=== PATIENT | female | born 1950 | race Caucasian/White ===

== ENCOUNTER 2016-09-12 18:06 | Emergency (ER) | payer MEDICARE, BC ==
[2016-09-12 18:21] VITALS: BP 131/73
[2016-09-12] MEDS ORDERED: Aspirin Low Dose CHEW TAB* 81 MG PO ONE (19:30)
--- NOTE | 2016-09-12 20:05 | RAD ---
INDICATION: Chest pain. COMPARISON: Comparison is made with a prior chest x-ray study from November 19, 2009. TECHNIQUE: Dual-energy PA and lateral views of the chest were obtained. FINDINGS: The heart is within normal limits in size. Mediastinal and hilar contours appear within normal limits. The lungs are underinflated. There is a linear density present at the right lung base most consistent with atelectasis. The lungs are otherwise clear. No pleural effusion is seen. IMPRESSION: NO EVIDENCE FOR ACUTE FINDING.
[2016-09-12 20:42] LABS: Albumin 3.2 g/dL (3.2-5.2); BUN/Creatinine Ratio 44.8 (8-20); Calcium 9.1 mg/dL (8.6-10.3); EGFR African American 83.8 (>60); EGFR Non-African American 65.1 (>60); Hematocrit 36 % (35-47); Hemoglobin 11.5 g/dl (12.0-16.0); Magnesium 1.9 mg/dL (1.9-2.7); Mean Corpuscular HGB Conc 32 g/dl (31-36); Mean Corpuscular Hemoglobin 24 pg (27-31); Mean Corpuscular Volume 76 fL (80-97); Mean Platelet Volume 9 um3 (7.4-10.4); Potassium 4.4 mmol/L (3.5-5.0); Red Blood Count 4.77 10^6/ul (4.0-5.4); Red Cell Distribution Width 19 % (10.5-15); Total Bilirubin 0.5 mg/dL (0.2-1.0); Total Protein 8.2 g/dL (6.4-8.9); White Blood Count 9.2 10^3/ul (3.5-10.8)
[2016-09-12 20:44] LABS: Troponin I 0.01 ng/mL (<0.04)
[2016-09-12] MEDS ORDERED: Iodixanol* (CONTRAST) 320 MG/ML 100 ML SDV IV ONE (21:03)
--- NOTE | 2016-09-12 21:45 | ED ---
Raquel Quiroga Rebecca, scribed for Marcio Peralta MD on 09/12/16 at 1925 . HPI Chest Pain - HPI Summary HPI Summary: Pt is a 66 y/o F who presents to ED c/o CP. Pain began suddenly at approximately 1700 while sitting and has been constant since onset. Pain is discrete to the midsternal region without radiation. Pain is currently modeate, ranked 4/10 and characterized as tightness. 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 Additionally c/o SOB for which she was evaluated by her PCP 4 days ago and she reports he found her "coagulation stuff was all out of wack" and prescribed Xarelto. Additionally c/o anxiety and back pain which may be secondary to an old injury that is flaring up. Is currently on blood thinners. PMHx PE. - History of Current Complaint Chief Complaint: EDChestWallPain Hx Obtained From: Patient Onset/Duration: Started Hours Ago, Still Present Time of Onset: 17:00 Timing: Constant Initial Severity: Moderate Current Severity: Moderate Pain Intensity: 4 Pain Scale Used: 0-10 Numeric Chest Pain Location: Mid Sternal Chest Pain Radiates: No Character: Tightness Aggravating Factor(s): Nothing Alleviating Factor(s): Nothing Associated Signs and Symptoms: Positive: Anxiety, Shortness of Breath, Back Pain Related History: Obesity - Allergy/Home Medications Allergies/Adverse Reactions: Allergies Allergy/AdvReac Type Severity Reaction Status Date / Time Erythromycin AdvReac Mild GI Upset Verified 01/01/14 14:28 PMH/Surg Hx/FS Hx/Imm Hx Endocrine/Hematology History: Reports: Hx Anticoagulant Therapy - Xarelto, Hx Diabetes - diet controlled Denies: Hx Thyroid Disease Cardiovascular History: Reports: Hx Hypertension Respiratory History: Reports: Hx Pulmonary Embolism Denies: Hx Asthma, Hx Chronic Obstructive Pulmonary Disease (COPD) GI History: Denies: Hx Ulcer - Surgical History Surgery Procedure, Year, and Place: Hysterectomy. Gall Bladder. Perforation in intestine, Repaired. Colostomy, then reversal Infectious Disease History: No Infectious Disease History: Denies: Hx Hepatitis, Hx Human Immunodeficiency Virus (HIV), Traveled Outside the [place] in Last 30 Days - Family History Known Family History: Positive: Cardiac Disease, Hypertension, Diabetes - Social History Alcohol Use: None Substance Use Type: Reports: None Review of Systems Positive: Chest Pain - midsternal Positive: Shortness Of Breath Positive: Arthralgia - Back pain which may be secondary to prior injury Positive: Anxious All Other Systems Reviewed And Are Negative: Yes Physical Exam Triage Information Reviewed: Yes Vital Signs On Initial Exam: Initial Vitals Temp Pulse Resp BP Pulse Ox 97.9 F 85 18 131/73 98 09/12/16 18:17 09/12/16 18:17 09/12/16 18:17 09/12/16 18:17 09/12/16 18:17 Vital Signs Reviewed: Yes Appearance: Positive: Pain Distress - mild discomfort, Obese - morbidly Skin: Positive: Warm Eyes: Positive: MAGGI ENT: Positive: Hearing grossly normal Neck: Positive: Supple Respiratory/Lung Sounds: Positive: Breath Sounds Present, Decreased Breath Sounds Cardiovascular: Positive: RRR Abdomen Description: Positive: Nontender, Soft Bowel Sounds: Positive: Present Musculoskeletal: Positive: Strength/ROM Intact Psychiatric: Positive: Affect/Mood Appropriate Diagnostics - Vital Signs Vital Signs Temp Pulse Resp BP Pulse Ox 09/12/16 18:17 97.9 F 85 18 131/73 98 - Laboratory Lab Results: Lab Results 09/12/16 09/12/16 09/12/16 Range/Units 20:10 20:10 20:10 WBC 9.2 (3.5-10.8) 10^3/ul RBC 4.77 (4.0-5.4) 10^6/ul Hgb 11.5 L (12.0-16.0) g/dl Hct 36 (35-47) % MCV 76 L (80-97) fL MCH 24 L (27-31) pg MCHC 32 (31-36) g/dl RDW 19 H (10.5-15) % Plt Count 370 (150-450) 10^3/ul MPV 9 (7.4-10.4) um3 Neut % (Auto) 69.0 (38-83) % Lymph % (Auto) 25.6 (25-47) % [place] % (Auto) 5.0 (1-9) % Eos % (Auto) 0 (0-6) % Baso % (Auto) 0.4 (0-2) % Absolute Neuts (auto) 6.4 (1.5-7.7) 10^3/ul Absolute Lymphs (auto) 2.4 (1.0-4.8) 10^3/ul Absolute Monos (auto) 0.5 (0-0.8) 10^3/ul Absolute Eos (auto) 0 (0-0.6) 10^3/ul Absolute Basos (auto) 0 (0-0.2) 10^3/ul Absolute Nucleated RBC 0.01 10^3/ul Nucleated RBC % 0.1 INR (Anticoag Therapy) (0.89-1.11) D-Dimer, Quantitative (Less Than 230) ng/mL Sodium 132 L (133-145) mmol/L Potassium 4.4 (3.5-5.0) mmol/L Chloride 98 L (101-111) mmol/L Carbon Dioxide 23 (22-32) mmol/L Anion Gap 11 (2-11) mmol/L BUN 39 H (6-24) mg/dL Creatinine 0.87 (0.51-0.95) mg/dL Est GFR ( Amer) 83.8 (>60) Est GFR (Non-Af Amer) 65.1 (>60) BUN/Creatinine Ratio 44.8 H (8-20) Glucose 205 H (70-100) mg/dL Lactic Acid 1.1 (0.5-2.0) mmol/L Calcium 9.1 (8.6-10.3) mg/dL Magnesium 1.9 (1.9-2.7) mg/dL Total Bilirubin 0.50 (0.2-1.0) mg/dL AST 49 H (13-39) U/L ALT 71 H (7-52) U/L Alkaline Phosphatase 443 H (34-104) U/L Troponin I 0.01 (<0.04) ng/mL Total Protein 8.2 (6.4-8.9) g/dL Albumin 3.2 (3.2-5.2) g/dL Globulin 5.0 H (2-4) g/dL Albumin/Globulin Ratio 0.6 L (1-3) 09/12/16 Range/Units 20:10 WBC (3.5-10.8) 10^3/ul RBC (4.0-5.4) 10^6/ul Hgb (12.0-16.0) g/dl Hct (35-47) % MCV (80-97) fL MCH (27-31) pg MCHC (31-36) g/dl RDW (10.5-15) % Plt Count (150-450) 10^3/ul MPV (7.4-10.4) um3 Neut % (Auto) (38-83) % Lymph % (Auto) (25-47) % [place] % (Auto) (1-9) % Eos % (Auto) (0-6) % Baso % (Auto) (0-2) % Absolute Neuts (auto) (1.5-7.7) 10^3/ul Absolute Lymphs (auto) (1.0-4.8) 10^3/ul Absolute Monos (auto) (0-0.8) 10^3/ul Absolute Eos (auto) (0-0.6) 10^3/ul Absolute Basos (auto) (0-0.2) 10^3/ul Absolute Nucleated RBC 10^3/ul Nucleated RBC % INR (Anticoag Therapy) 2.11 H (0.89-1.11) D-Dimer, Quantitative 478 H (Less Than 230) ng/mL Sodium (133-145) mmol/L Potassium (3.5-5.0) mmol/L Chloride (101-111) mmol/L Carbon Dioxide (22-32) mmol/L Anion Gap (2-11) mmol/L BUN (6-24) mg/dL Creatinine (0.51-0.95) mg/dL Est GFR ( Amer) (>60) Est GFR (Non-Af Amer) (>60) BUN/Creatinine Ratio (8-20) Glucose (70-100) mg/dL Lactic Acid (0.5-2.0) mmol/L Calcium (8.6-10.3) mg/dL Magnesium (1.9-2.7) mg/dL Total Bilirubin (0.2-1.0) mg/dL AST (13-39) U/L ALT (7-52) U/L Alkaline Phosphatase (34-104) U/L Troponin I (<0.04) ng/mL Total Protein (6.4-8.9) g/dL Albumin (3.2-5.2) g/dL Globulin (2-4) g/dL Albumin/Globulin Ratio (1-3) Result Diagrams: 09/12/16 20:10 09/12/16 20:10 Lab Statement: Any lab studies that have been ordered have been reviewed, and results considered in the medical decision making process. - Radiology CXR Xray Interpretation: No Acute Changes - NO EVIDENCE FOR ACUTE FINDING. Radiology Interpretation Completed By: Radiologist - CT Chest/Thorax CTA CT Interpretation Completed By: Radiologist - 1. SLIGHTLY LIMITED EXAM, NO EVIDENCE FOR PULMONARY EMBOLISM. 2. THERE IS INCREASED SOFT TISSUE DENSITY IN THE PERIPORTAL AND PERIPANCREATIC REGION ADJACENT TO THE PANCREATIC HEAD SUSPICIOUS FOR ADENOPATHY. RECOMMEND A CT OF THE ABDOMEN AND PELVIS WITH IV AND ORAL CONTRAST FOR FURTHER EVALUATION. 3. MILDLY PROMINENT RIGHT AXILLARY LYMPH NODES. 4. HEPATOMEGALY. 5. PROMINENT RETROPERITONEAL VEINS SUGGESTING THE POSSIBILITY OF INFERIOR VENA CAVA OBSTRUCTION OR COMPRESSION. - EKG 1806 Cardiac Rate: NL - 97 bpm EKG Rhythm: Sinus Rhythm - nl EKG Interpretation: No acute ischemia Re-Evaluation - Re-Evaluation First Eval Re-Evaluation Time: 22:50 Change: Improved Comment: Pt is feeling better. Discussed and explained d/c with pt. Chest Pain Course/Dx - Course Assessment/Plan: Pt is a 66 y/o F who presents to ED with a CC of CP for 2 and a half hours. Additionally c/o anxiety, SOB and back pain (may be secondary to prior injury). EKG reveals no acute ischemia. CXR reveals no acute findings. Chest/Thorax CTA shows no evidence for PE. Pt will be d/c to home with a dx of chest pain with a followup with her PCP. - Diagnoses Provider Diagnoses: Chest pain Discharge - Discharge Plan Condition: Stable Disposition: HOME Patient Education Materials: Chest Pain (ED) Referrals: Hussein Centeno MD [Primary Care Provider] - 4 Days (Follow up with your primary care physician within the next 4 days. ) The documentation as recorded by the Raquel fernandez Rebecca accurately reflects the service I personally performed and the decisions made by me, Marcio Peralta MD.
--- NOTE | 2016-09-12 22:04 | RAD ---
INDICATION: Chest pain, shortness of breath and elevated d-dimer. COMPARISON: Comparison is made with prior chest x-ray study obtained earlier today and a prior CT of the chest from September 09, 2016. Correlation is also made with a prior CT of the abdomen from April 07, 2004. TECHNIQUE: A CT angiogram of the chest was performed with intravenous following intravenous injection of 96 ml of Visipaque 320 nonionic contrast. Contiguous axial sections were obtained from the lung apices through the lung bases. Images were reconstructed in the coronal and sagittal planes. FINDINGS: There is slightly suboptimal opacification of the pulmonary arteries and mild motion artifact limiting the exam slightly. No intraluminal filling defect or pulmonary embolism is seen. The heart is mildly enlarged. No pericardial effusion is present. The thoracic aorta is normal in caliber and demonstrates homogeneous contrast opacification. No significant enlarged mediastinal or hilar lymph nodes are seen. There is mild right middle lobe subsegmental atelectasis or scarring. The lungs are otherwise clear. No pleural effusion is present. The liver appears enlarged. There is increased soft tissue density in the periportal and peripancreatic head region possibly representing adenopathy. Recommend a CT of the abdomen and pelvis with IV and oral contrast for further evaluation. There is prominence of the azygos and hemiazygos veins. The visualized portion of the inferior vena cava in the upper abdomen appears small in size and may be compressed or occluded. There are a couple prominent right axillary lymph nodes measuring 1.3 cm in transverse dimension. No significant focal osseous abnormality is seen. IMPRESSION: 1. SLIGHTLY LIMITED EXAM, NO EVIDENCE FOR PULMONARY EMBOLISM. 2. THERE IS INCREASED SOFT TISSUE DENSITY IN THE PERIPORTAL AND PERIPANCREATIC REGION ADJACENT TO THE PANCREATIC HEAD SUSPICIOUS FOR ADENOPATHY. RECOMMEND A CT OF THE ABDOMEN AND PELVIS WITH IV AND ORAL CONTRAST FOR FURTHER EVALUATION. 3. MILDLY PROMINENT RIGHT AXILLARY LYMPH NODES. 4. HEPATOMEGALY. 5. PROMINENT RETROPERITONEAL VEINS SUGGESTING THE POSSIBILITY OF INFERIOR VENA CAVA OBSTRUCTION OR COMPRESSION.
== END 2016-09-12 22:56 | disposition home or self-care (01) ==
LOC: ED 18:06
DX: R07.9 Chest pain, unspecified (principal); I10 Essential (primary) hypertension; Z86.711 Personal history of pulmonary embolism; Z79.01 Long term (current) use of anticoagulants; Z79.82 Long term (current) use of aspirin
CPT/HCPCS: 36415; 71020; 71275; 80053; 83605; 83735; 84484; 85025; 85379; 85610; 93005; 99282; A9270-GY; Q9967

== ENCOUNTER 2016-09-13 05:29 | Inpatient (IN) | payer MEDICARE, BC ==
[2016-09-13] MEDS ORDERED: Melatonin (NF) 3 MG TAB PO PRN (05:54)
[2016-09-13] MEDS ORDERED: Acetaminophen TAB* 325 MG PO PRN (05:54)
[2016-09-13] MEDS ORDERED: Ondansetron INJ* 2 MG/ML VIAL IV PRN (05:56)
--- NOTE | 2016-09-13 06:01 | HP ---
H&P (Free Text) History and Physical: PCP: Eun Centeno MD Date/Time of Evaluation: 09/13/2016 0545 CC: SOB HPI: Mrs Coello is a 66YO super morbidly obese female who presented to [facility] 09/12/2016 for SOB with chest discomfort and was discharged after a negative work up including CTA chest. She went to bed after arriving home only to awake to use the restroom finding herself very SOB again. She states this isn't unusual, but that she usually recovers quickly and this AM she didn't prompting a call to EMS. Upon their arrival she had an saO2 in the 80s which improved along with her SOB with [place] oxygen. As such she will be admitted for further work up and consideration of pulmonology consult. Of note she was diagnosed recently with Lyme's disease and is taking doxycycline. Also, she reports recently seeing her PCP who found that her "coagulation tests" were "all messed up" and so started her on rivaroxaban. We will request office records for further information. I did explain to her that there is no PE, pneumonia, signs of bronchitis, or signs of heart failure making the etiology for her SOB unclear, but making me concerned that this is obesity hypoventilation syndrome and that without a significant amount of weight loss, she is heading for a tracheostomy or Hospice situation. PMedHx super morbid obesity DM2 HTN HX DVT w/ PE x2 diverticulitis s/p colostomy & reversal restless leg syndrome OA Allergies Erythromycin Adverse Reaction (Mild, Verified 01/01/14 14:28) GI Upset Ambulatory Orders DULoxetine CAP* [Cymbalta CAP*] 60 mg PO DAILY 04/07/13 Triamterene/HCTZ 37.5-25 MG* [Dyazide*] 1 cap PO BID 04/07/13 Diltiazem TAB* [Cardizem TAB*] 240 mg PO BID 01/01/14 rOPINIRole TAB* [Requip*] 4 mg PO DAILY 01/01/14 DOXYcycline CAP(*) [DOXYcycline 100MG CAP(*)] 100 mg PO DAILY 09/13/16 HYDROcodone/ACETAMIN 5-325 MG* [[place] 5-325 TAB*] 1 tab PO Q4H PRN 09/13/16 Rivaroxaban TAB(*) [Xarelto 10 mg (*)] 10 mg PO DAILY 09/13/16 PSurgHx colostomy & reversal cholecystectomy SocHx: no tobacco, alcohol, or recreational drugs; full code status, needs revisiting FamHx: Mother passed of PE. Father passed of CAD. ROS: as above, otherwise reviewed and all were negative Constitutional: NAD, normally developed, super morbidly obese white female vitals: Vital Signs Temp 35.3 C 09/13/16 06:10 Pulse 112 09/13/16 06:10 Resp 27 09/13/16 06:10 BP 120/68 09/13/16 06:10 Pulse Ox 99 09/13/16 06:10 Intake & Output 09/12/16 09/12/16 09/13/16 11:59 23:59 11:59 Weight 290 lb HEENM: atraumatic; sclera/conjunctiva: non-icteric/clear; hearing: clinically intact; oropharynx: clear, mucosa moist Neck: soft tissue: no nuchal rigidity; thyroid: normal Pulmonary: distant lung sounds B, clear to auscultation bilaterally, good to fair aeration, no accessory muscle use CV: RR/RR, normal S1S2, no carotid bruit, no femoral bruit, no abdominal bruit, no jugular venous distention, 2+ B DP/PT, no edema Abdominal: soft, non-distended, non-tender, no rebound/guarding/rigidity, normoactive bowel sounds, no hepatosplenomegaly or masses, no costovertebral angle tenderness Musculoskeletal: general: grossly intact Integumental: normal appearance and texture Psychiatric orientation: AA&O to PPS affect: calm mood: cooperative eye contact: poor, gives majority of history with eyes closed content: reliable responses: timely insight: fair Testing: reviewed from previous ED visit ECG, personally reviewed: NSR rate 99, no ischemia CXR, personally reviewed: IMPRESSION: NO EVIDENCE FOR ACUTE FINDING. CTA chest, personally reviewed: IMPRESSION: 1. SLIGHTLY LIMITED EXAM, NO EVIDENCE FOR PULMONARY EMBOLISM. 2. THERE IS INCREASED SOFT TISSUE DENSITY IN THE PERIPORTAL AND DEBBIE- PANCREATIC REGION ADJACENT TO THE PANCREATIC HEAD SUSPICIOUS FOR ADENOPATHY. RECOMMEND A CT OF THE ABDOMEN AND PELVIS WITH IV AND ORAL CONTRAST FOR FURTHER EVALUATION. 3. MILDLY PROMINENT RIGHT AXILLARY LYMPH NODES. 4. HEPATOMEGALY. 5. PROMINENT RETROPERITONEAL VEINS SUGGESTING THE POSSIBILITY OF INFERIOR VENA CAVA OBSTRUCTION OR COMPRESSION. Impression: 66F presenting with SOB of uncertain etiology, concerning for decompensating obesity-hypoventilation syndrome DIAGNOSIS & PLAN Primary SOB, unclear etiology, suspect obesity hypoventilation syndrome : supplemental oxygen : NPO for now : consider pulmonology consult in AM : recheck labs in AM : check ECHO : supportive care Secondary super morbid obesity : likely a contributing factor to her SOB DM2 : basal/correctional protocol : check A1c HTN : continue diltiazem : hold triamterene HCTZ HX DVT w/ PE x2 : continue rivaroxaban restless leg syndrome : continue ropinirole Admission Rational: inpatient for SOB of unclear etiology in patient found at home with saO2 in the 80s making outpatient management inappropriate DVTp: continue rivaroxaban Code Status: full, needs revisiting HCP: daughter, Ami Lin
--- NOTE | 2016-09-13 06:04 | ED ---
Raquel Quiroga Rebecca, scribed for Marcio Peralta MD on 09/13/16 at 0540 . Shortness of Breath - HPI Summary HPI Summary: Pt is a 66 y/o F BIBA who presents to ED c/o SOB. SOB began suddenly this morning at 0500 after walking to the bathroom and has been constant since onset. SOB characterized as dyspnea at rest. Per EMS, on arrival her O2 sat was 80. Sx aggravated and alleviated by nothing. Pt was evaluated by [facility] for similar symptoms yesterday. A CTA Chest and CXR were performed, revealing no acute pathologies. - History of Current Complaint Hx Obtained From: EMS Onset/Duration: Sudden Onset, Still Present Timing: Constant Current Severity: Moderate Dyspnea At: Rest Aggrevating Factors: Nothing Alleviating Factors: Nothing Associated Signs & Symptoms: Negative Related History: Obesity, Similar Episode - Yesterday - Allergy/Home Medications Allergies/Adverse Reactions: Allergies Allergy/AdvReac Type Severity Reaction Status Date / Time Erythromycin AdvReac Mild GI Upset Verified 01/01/14 14:28 Home Medications: Home Medications DOXYcycline CAP(*) [DOXYcycline 100MG CAP(*)] 100 mg PO DAILY 09/13/16 [History Confirmed 09/13/16] HYDROcodone/ACETAMIN 5-325 MG* [[place] 5-325 TAB*] 1 tab PO Q4H PRN 09/13/16 [ History Confirmed 09/13/16] Rivaroxaban TAB(*) [Xarelto 10 mg (*)] 10 mg PO DAILY 09/13/16 [History Confirmed 09/13/16] PMH/Surg Hx/FS Hx/Imm Hx Endocrine/Hematology History: Reports: Hx Anticoagulant Therapy - Xarelto, Hx Diabetes - diet controlled Denies: Hx Thyroid Disease Cardiovascular History: Reports: Hx Hypertension Respiratory History: Reports: Hx Pulmonary Embolism Denies: Hx Asthma, Hx Chronic Obstructive Pulmonary Disease (COPD) GI History: Denies: Hx Ulcer - Surgical History Surgery Procedure, Year, and Place: Hysterectomy. Gall Bladder. Perforation in intestine, Repaired. Colostomy, then reversal Infectious Disease History: Denies: Hx Hepatitis, Hx Human Immunodeficiency Virus (HIV) - Family History Known Family History: Positive: Cardiac Disease, Hypertension, Diabetes - Social History Alcohol Use: None Substance Use Type: Reports: None Smoking Status (MU): Never Smoked Tobacco Review of Systems Constitutional: Negative Eyes: Negative ENT: Negative Cardiovascular: Negative Positive: Shortness Of Breath - dyspnea at rest Gastrointestinal: Negative Genitourinary: Negative Musculoskeletal: Negative Skin: Negative Neurological: Negative Psychological: Normal All Other Systems Reviewed And Are Negative: Yes Physical Exam Triage Information Reviewed: Yes Vital Signs On Initial Exam: Initial Vitals Temp Pulse Resp BP Pulse Ox 95.9 F 108 26 138/83 100 09/13/16 05:35 09/13/16 05:35 09/13/16 05:35 09/13/16 05:35 09/13/16 05:35 Vital Signs Reviewed: Yes Appearance: Positive: No Pain Distress, Obese - morbidly Skin: Positive: Warm Eyes: Positive: MAGGI ENT: Positive: Hearing grossly normal Neck: Positive: Supple Respiratory/Lung Sounds: Positive: Decreased Breath Sounds, Wheezes Cardiovascular: Positive: RRR Abdomen Description: Positive: Nontender, Soft Neurological: Positive: Sensory/Motor Intact Psychiatric: Positive: Anxious Diagnostics - Vital Signs Vital Signs Temp Pulse Resp BP Pulse Ox 09/13/16 05:35 95.9 F 108 26 138/83 100 - Laboratory Lab Statement: Any lab studies that have been ordered have been reviewed, and results considered in the medical decision making process. Course/Dx - Course Assessment/Plan: Pt is a 66 y/o F BIBA who presents to ED with a CC of SOB for the last hour. SOB characterized as dyspnea at rest. She was evaluated by [facility] for similar symptoms yesterday, with a CXR and CTA Chest/Thorax performed, both of which revealed no acute pathologies. Discussed care of pt with Dr. Mora, who will admit pt. Pt will be admitted to hospitalist services. - Diagnoses Provider Diagnoses: Dyspnea - Physician Notifications Discussed Care of Patient With: Dr. Mora, hospitalist, who agrees to admit pt. Time Discussed With Above Provider: 05:42 Instructed by Provider To: Admit As Inpatient Discharge - Discharge Plan Condition: Good Disposition: ADMITTED TO [facility] Referrals: Hussein Centeno MD [Primary Care Provider] - The documentation as recorded by the Raquel fernandez Rebecca accurately reflects the service I personally performed and the decisions made by me, Marcio Peralta MD.
[2016-09-13] MEDS: DULoxetine DR CAP* 30 MG CAP.DR PO SCH ×2 (07:58→08:20)
[2016-09-13] MEDS: DOXYcycline CAP(*) 100 MG PO SCH ×2 (07:58→11:02)
[2016-09-13] MEDS: Aspirin TAB* 325 MG PO SCH ×2 (07:58→08:20)
[2016-09-13] MEDS: Omeprazole CAP* 20 MG PO SCH ×2 (07:58→08:20)
[2016-09-13] MEDS: Diltiazem CD CAP* 240 MG PO SCH ×3 (07:59→21:28)
[2016-09-13] MEDS: Docusate CAP* 100 MG PO SCH ×3 (07:59→21:28)
[2016-09-13] MEDS: Insulin LISPRO* 1 UNITS UNIT SUBCUT SCH ×5 (08:55→23:38)
[2016-09-13] MEDS ORDERED: Rivaroxaban TAB(*) 10 MG PO SCH ×2 (09:00)
[2016-09-13 09:08] LABS: BUN/Creatinine Ratio 31.9 (8-20); EGFR African American 40.6 (>60); EGFR Non-African American 31.6 (>60); HDL Cholesterol 29.8 mg/dL; Potassium 5.2 mmol/L (3.5-5.0)
[2016-09-13 09:11] LABS: Troponin I 0.03 ng/mL (<0.04)
[2016-09-13] MEDS: rOPINIRole TAB* 4 MG PO SCH ×2 (11:02→11:03)
[2016-09-13] MEDS: NS 0.9% 1000 ML* 1,000 ML IV SCH (11:03)
[2016-09-13 15:38] LABS: Hematocrit 34 % (35-47); Hemoglobin 10.8 g/dl (12.0-16.0); Mean Corpuscular HGB Conc 31 g/dl (31-36); Mean Corpuscular Hemoglobin 24 pg (27-31); Mean Corpuscular Volume 77 fL (80-97); Mean Platelet Volume 9 um3 (7.4-10.4); Red Blood Count 4.45 10^6/ul (4.0-5.4); Red Cell Distribution Width 19 % (10.5-15); White Blood Count 15.7 10^3/ul (3.5-10.8)
--- NOTE | 2016-09-13 16:09 | ECHO ---
Patient: ROMAIN LOU [facility] Rec#: [id number] : 1950 Date: 09/13/2016 Age: 66y Height: 162.56 cm / 64.0 in Weight: 130.63 kg / 287.9 lbs Sex: F BSA: 2.28 Room#: 443 Admit Date#: 09/13/2016 Type: Inpatient Referring: Justin Mora MD Reading: Bjorn Pena MD Friction Saw Operator: Ruth Mensah RDCS CC: Hussien Centeno MD Transthoracic Echocardiogram Indication: SOB BP: 120/68 HR: 122 Rhythm: Tachycardia Findings History: Morbid obesity,DM,HTN,prior PE, obstructive apnea,Lyme's disease. Technical Comments: The study is technically limited due to poor apical windows. The study is technically limited due to patient body habitus. The study was technically limited due to the patient's inability to lay in the left lateral decubitus position. Left Ventricle: The left ventricle is not well visualized. Unable to estimate left ventricular ejection fraction. The patient was unable to perform a Valsalva maneuver. Left Atrium: The left atrium is normal in size. Right Ventricle: The right ventricle is not well visualized. The right ventricular global systolic function is normal. Right Atrium: The right atrium is not well visualized. Aortic Valve: The aortic valve is trileaflet. There is no evidence of aortic regurgitation. There is no evidence of aortic stenosis. Mitral Valve: The mitral valve leaflets are mildly thickened. There is no evidence of mitral regurgitation. There is no evidence of mitral stenosis. Tricuspid Valve: The tricuspid valve structure is not well visualized. Pulmonic Valve: The pulmonic valve appears normal. There is a trace pulmonic regurgitation. There is no pulmonic stenosis. Pericardium: A pericardial fat pad is visualized. Aorta: There is no dilatation of the ascending aorta. There is no dilatation of the aortic arch. There is no dilation of the aortic root. Pulmonary Artery: The main pulmonary artery appears normal. Venous: The venous system is not well visualized. Conclusions The study is technically limited due to poor apical windows. The study is technically limited due to patient body habitus. The study was technically limited due to the patient's inability to lay in the left lateral decubitus position. Off axis views and tachycardia with lung tissue interference precludes accurate LV function analysis. No significant mitral or aortic valvular disease. If accurate assessment of LV systolic function is needed, consider alternative imaging. Measurements Name Value Normal Range RVIDd (AP) 2D 2.1 cm (0.9 - 2.6) IVSd (2D) 1 cm (0.6 - 1) LVPWd (2D) 0.8 cm (0.6 - 1) LVIDd (2D) 2.8 cm (3.6 - 5.4) LVIDs (2D) 1.8 cm - LV FS (2D) 36 % (25 - 45) Aortic Annulus 1.7 cm (1.4 - 2.6) Ao root diameter (2D) 2.8 cm (2.1 - 3.5) Ascending Ao 2.9 cm (2.1 - 3.4) Aortic arch 1.8 cm (1.8 - 3.4) Descending Ao 0.7 cm - LA dimension (AP) 2D 2.7 cm (2.3 - 3.8) Name Value Normal Range MV E-wave Vmax 0.6 m/sec - MV deceleration time 122 msec - MV A-wave Vmax 0.5 m/sec - MV E:A ratio 1.2 ratio - LV septal e' Vmax 0.11 m/sec - LV lateral e' Vmax 0.11 m/sec - LV E:e' septal ratio 5.45 ratio - LV E:e' lateral ratio 5.45 ratio - Name Value Normal Range AV Vmax 1 m/sec - AV VTI 13.3 cm - AV peak gradient 4.27 mmHg - AV mean gradient 1.98 mmHg - LVOT Vmax 0.73 m/sec - LVOT VTI 9.38 cm - LVOT peak gradient 2.15 mmHg - LVOT mean gradient 1.02 mmHg - Name Value Normal Range PV Vmax 0.9 m/sec - PV peak gradient 3.17 mmHg -
[2016-09-13] MEDS ORDERED: Iodixanol* (CONTRAST) 320 MG/ML 100 ML SDV IV ONE (18:44)
--- NOTE | 2016-09-13 20:43 | PN ---
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 She continues to feel the same level of SOB. Plan is for pulmonary consultation tomorrow. ? viral illness as source of increased SOB-she tells me that she ordinarily is not SOB. Additionally will get CT abd/pelvis to eval peripancreatic adenopathy.
[2016-09-13] MEDS ORDERED: Insulin GLARGINE(*) 1 UNITS UNIT SUBCUT SCH (21:00)
[2016-09-14] MEDS: Insulin LISPRO* 1 UNITS UNIT SUBCUT SCH ×5 (03:41→20:51)
[2016-09-14] MEDS: Omeprazole CAP* 20 MG PO SCH (05:08)
[2016-09-14] MEDS: Docusate CAP* 100 MG PO SCH ×2 (07:49→20:53)
[2016-09-14 08:03] LABS: BUN/Creatinine Ratio 33.5 (8-20); Calcium 8.1 mg/dL (8.6-10.3); EGFR African American 28.1 (>60); EGFR Non-African American 21.9 (>60); Potassium 4.5 mmol/L (3.5-5.0)
[2016-09-14] MEDS: DOXYcycline CAP(*) 100 MG PO SCH (08:59)
[2016-09-14] MEDS: DULoxetine DR CAP* 30 MG CAP.DR PO SCH (08:59)
[2016-09-14] MEDS: Diltiazem CD CAP* 240 MG PO SCH ×2 (08:59→20:51)
[2016-09-14] MEDS: Rivaroxaban TAB(*) 20 MG TAB PO SCH (08:59)
[2016-09-14] MEDS: Aspirin TAB* 325 MG PO SCH (09:00)
[2016-09-14] MEDS: rOPINIRole TAB* 4 MG PO SCH (09:01)
[2016-09-14] MEDS: NS 0.9% 1000 ML* 1,000 ML IV SCH ×3 (09:01→22:26)
--- NOTE | 2016-09-14 11:58 | RAD ---
HISTORY: Acute hypoxic respiratory failure COMPARISONS: September 12, 2016 VIEWS:1: Single frontal portable view of the chest at 10:31 AM FINDINGS: LINES AND TUBES: None. CARDIOMEDIASTINAL SILHOUETTE: The cardiomediastinal silhouette is normal for portable technique. PLEURA: The costophrenic angles are sharp. No pleural abnormalities are noted. LUNG PARENCHYMA: The lung volumes are low. The lungs are clear accounting for the phase of respiration. ABDOMEN: The upper abdomen is clear. There is no subphrenic gas. BONES AND SOFT TISSUES: No bone or soft tissue abnormalities are noted. IMPRESSION: LOW LUNG VOLUMES. NO ACTIVE CARDIOPULMONARY DISEASE.
--- NOTE | 2016-09-14 14:05 | RAD ---
INDICATION: Peripancreatic adenopathy COMPARISON: CTA chest September 12, 2016 TECHNIQUE: Axial source images were obtained from the hemidiaphragms to the symphysis pubis following administration of oral contrast only. IV contrast was given due to decreased GFR. There is a small amount of residual contrast from earlier imaging Coronal and sagittal reconstructed images were acquired. Lung bases: There are small bilateral pleural effusions right greater left. The effusions are new. Liver: There is no focal hepatic mass on noncontrast evaluation.. Gallbladder: Cholecystectomy. Spleen: No focal splenic lesion on noncontrast evaluation.. Pancreas: Diffuse peripancreatic infiltrative change. Correlate with history of acute pancreatitis. Adrenal glands: There is no evidence of adrenal mass. Kidneys: Small amount of residual contrast within the collecting systems. No definitive focal renal abnormality on noncontrast evaluation. Adenopathy: Extensive adenopathy with the long lesser curvature and in the lidia hepatis region. Multiple peripancreatic lymph nodes. Lymph nodes measure up to 6 cm. Fluid collections: Extensive peripancreatic infiltrative change. There is fluid extending into the paracolic gutters as well. Vessels:There are no significant atherosclerotic changes involving the aorta. There is no focal aneurysm. The iliac vessels are normal in caliber. The IVC appears normal. GI tract: No acute appearing bowel findings. There is a large ventral hernia containing bowel. There is no obstruction. Pelvic organs: Hysterectomy. Prominent cervical stump perhaps with nabothian cysts. No adnexal mass. Bladder: There are no bladder masses. Abdominal and pelvic soft tissues: Large ventral hernia containing small bowel. No obstructive findings. Osseous structures: There are no acute osseous findings. Other: None IMPRESSION: 1. Noncontrast imaging was performed due to depressed GFR. 2. Extensive adenopathy as described. Suggest tissue sampling. 3. Diffuse pancreatic infiltrative change. There is also fluid extending into the paracolic gutters. 4. Large ventral hernia.
[2016-09-15] MEDS: Omeprazole CAP* 20 MG PO SCH (05:02)
[2016-09-15 05:22] LABS: Hematocrit 25 % (35-47); Hemoglobin 7.8 g/dl (12.0-16.0); Mean Corpuscular HGB Conc 32 g/dl (31-36); Mean Corpuscular Hemoglobin 25 pg (27-31); Mean Corpuscular Volume 76 fL (80-97); Mean Platelet Volume 8 um3 (7.4-10.4); Red Cell Distribution Width 19 % (10.5-15)
[2016-09-15 05:38] LABS: Albumin 2.7 g/dL (3.2-5.2); BUN/Creatinine Ratio 42.7 (8-20); Calcium 8.1 mg/dL (8.6-10.3); EGFR African American 52.2 (>60); EGFR Non-African American 40.6 (>60); Magnesium 2.1 mg/dL (1.9-2.7); Phosphorus 4.5 mg/dL (2.5-5.0); Potassium 3.1 mmol/L (3.5-5.0); Total Bilirubin 0.6 mg/dL (0.2-1.0); Total Protein 6.7 g/dL (6.4-8.9)
[2016-09-15] MEDS: rOPINIRole TAB* 4 MG PO SCH (08:05)
[2016-09-15] MEDS: DOXYcycline CAP(*) 100 MG PO SCH (08:05)
[2016-09-15] MEDS: DULoxetine DR CAP* 30 MG CAP.DR PO SCH (08:05)
[2016-09-15] MEDS: Rivaroxaban TAB(*) 20 MG TAB PO SCH (08:05)
[2016-09-15] MEDS: Diltiazem CD CAP* 240 MG PO SCH ×2 (08:06→20:15)
[2016-09-15] MEDS: Aspirin TAB* 325 MG PO SCH (08:06)
[2016-09-15] MEDS: Insulin LISPRO* 1 UNITS UNIT SUBCUT SCH ×4 (08:06→20:37)
[2016-09-15] MEDS: Docusate CAP* 100 MG PO SCH ×2 (08:09→20:18)
[2016-09-15] MEDS: NS 0.9% 1000 ML* 1,000 ML IV SCH (11:00)
--- NOTE | 2016-09-15 18:01 | PN ---
Subjective Date of Service: 09/14/16 Interval History: . denies pain feels ok at rest - difficulty with exertion CTA was neg ECHO pending. denies SOB at rest no CP. Family History: Unchanged from Admission Social History: Unchanged from Admission Past Medical History: Unchanged from Admission Objective Active Medications: . Acetaminophen (Tylenol Tab*) 650 mg PO Q6H PRN PRN Reason: FEVER/PAIN Aspirin (Aspirin Tab*) 325 mg PO DAILY [facility] Last Admin: 09/15/16 08:06 Dose: 325 mg Diltiazem HCl (Cardizem Cd Cap*) 240 mg PO BID [facility] Last Admin: 09/15/16 08:06 Dose: 240 mg Docusate Sodium (Colace Cap*) 200 mg PO BID [facility] Last Admin: 09/15/16 08:09 Dose: Not Given Doxycycline Hyclate (Vibramycin Cap(*)) 100 mg PO DAILY [facility] Last Admin: 09/15/16 08:05 Dose: 100 mg Duloxetine HCl (Cymbalta Cap*) 60 mg PO DAILY [facility] Last Admin: 09/15/16 08:05 Dose: 60 mg Sodium Chloride (Ns 0.9% 1000 Ml*) 1,000 mls @ 85 mls/hr IV PER RATE [facility] Last Admin: 09/15/16 11:00 Dose: 85 mls/hr Insulin Human Lispro (Humalog*) 0 units SUBCUT ACHS [facility] PRN Reason: Protocol Last Admin: 09/15/16 17:43 Dose: 2 units Melatonin (Melatonin (Nf)) 3 mg PO BEDTIME PRN; Protocol PRN Reason: Sleep Omeprazole (Prilosec Cap*) 20 mg PO DAILY@0600 [facility] Last Admin: 09/15/16 05:02 Dose: 20 mg Ondansetron HCl (Zofran Inj*) 4 mg IV Q6H PRN PRN Reason: NAUSEA Rivaroxaban (Xarelto (*)) 20 mg PO DAILY [facility] Last Admin: 09/15/16 08:05 Dose: 20 mg Ropinirole HCl (Requip*) 4 mg PO DAILY [facility] Last Admin: 09/15/16 08:05 Dose: 4 mg . Vital Signs 09/14/16 09/14/16 09/14/16 18:46 19:20 23:52 Temperature 98.1 F 99.1 F Pulse Rate 51 96 Respiratory 18 20 16 Rate Blood Pressure 130/69 134/76 (mmHg) O2 Sat by Pulse 100 100 Oximetry 09/15/16 09/15/16 09/15/16 03:02 03:36 07:41 Temperature 98.6 F 98.1 F Pulse Rate 94 75 Respiratory 16 20 Rate Blood Pressure 120/65 120/53 (mmHg) O2 Sat by Pulse 100 100 100 Oximetry Appearance: obese woman in NAD Eyes: No Scleral Icterus Ears/Nose/Mouth/Throat: Clear Oropharnyx Neck: Trachea Midline Respiratory: Symmetrical Chest Expansion and Respiratory Effort - distant breath sounds, Clear to Auscultation Cardiovascular: NL Sounds; No Murmurs; No JVD Abdominal: NL Sounds; No Tenderness; No Distention, - - difficult exam 2/2 SM obesity Lymphatic: No Cervical Adenopathy Extremities: No Edema Skin: No Rash or Ulcers Neurological: Alert and Oriented x 3 Lines/Tubes/Other Access: Clean, Dry and Intact Peripheral IV Nutrition: Taking PO's Result Diagrams: 09/15/16 05:00 09/15/16 05:00 Assess/Plan/Problems-Billing . Assessment: 66 yo female with sob of unclear etiology. DDX: R heart failure 2/2 occult BIPIN OHS occult cardiomyopathy Current Medications: - Acetaminophen 650 mg PO Q6H PRN FEVER/PAIN - Aspirin 325 mg PO DAILY - Diltiazem HCl 240 mg PO BID - Docusate 200 mg PO BID - Doxycycline 100 mg PO DAILY - Duloxetine 60 mg PO DAILY - NS @ 85 mls/hr IV PER RATE - Insulin Human Lispro SSI Protocol - low dose - Melatonin 3 mg PO BEDTIME PRN Sleep - Omeprazole 20 mg PO DAILY - Ondansetron 4 mg IV Q6H PRN NAUSEA - Rivaroxaban 20 mg PO DAILY - Ropinirole 4 mg PO DAILY - Patient Problems (1) Shortness of breath on exertion Current Visit: Yes Status: Acute Priority: High Code(s): R06.02 - SHORTNESS OF BREATH Comment: - DDX broad: - Occult BIPIN causing RH failure? cardiolyopathy? - ECHO pending - severe deconditioning (2) Morbid obesity with BMI of 50.0-59.9, adult Current Visit: Yes Status: Acute Priority: High Code(s): E66.01 - MORBID ( SEVERE) OBESITY DUE TO EXCESS CALORIES; Z68.43 - BODY MASS INDEX (BMI) 50-59.9 , ADULT Comment: - noted (3) History of pulmonary embolism Current Visit: Yes Status: Acute Priority: High Code(s): Z86.711 - PERSONAL HISTORY OF PULMONARY EMBOLISM Comment: - h/o PE --> on xarelto
--- NOTE | 2016-09-15 18:14 | PN ---
Subjective Date of Service: 09/15/16 Interval History: . - Patient not improving - A few findings: - RN notified me that patient noted to be in AF since this AM. - Anemia relative to 09/13 noted -- she has been on IVF, so some degree of dilution as all cell lines affected. - Pt could not participate with PT Family History: Unchanged from Admission Social History: Unchanged from Admission Past Medical History: Unchanged from Admission Objective Active Medications: . Acetaminophen (Tylenol Tab*) 650 mg PO Q6H PRN PRN Reason: FEVER/PAIN Aspirin (Aspirin Tab*) 325 mg PO DAILY [facility] Last Admin: 09/15/16 08:06 Dose: 325 mg Diltiazem HCl (Cardizem Cd Cap*) 240 mg PO BID [facility] Last Admin: 09/15/16 08:06 Dose: 240 mg Docusate Sodium (Colace Cap*) 200 mg PO BID [facility] Last Admin: 09/15/16 08:09 Dose: Not Given Doxycycline Hyclate (Vibramycin Cap(*)) 100 mg PO DAILY [facility] Last Admin: 09/15/16 08:05 Dose: 100 mg Duloxetine HCl (Cymbalta Cap*) 60 mg PO DAILY [facility] Last Admin: 09/15/16 08:05 Dose: 60 mg Insulin Human Lispro (Humalog*) 0 units SUBCUT ACHS [facility] PRN Reason: Protocol Last Admin: 09/15/16 17:43 Dose: 2 units Melatonin (Melatonin (Nf)) 3 mg PO BEDTIME PRN; Protocol PRN Reason: Sleep Omeprazole (Prilosec Cap*) 20 mg PO DAILY@0600 [facility] Last Admin: 09/15/16 05:02 Dose: 20 mg Ondansetron HCl (Zofran Inj*) 4 mg IV Q6H PRN PRN Reason: NAUSEA Rivaroxaban (Xarelto (*)) 20 mg PO DAILY [facility] Last Admin: 09/15/16 08:05 Dose: 20 mg Ropinirole HCl (Requip*) 4 mg PO DAILY [facility] Last Admin: 09/15/16 08:05 Dose: 4 mg . Vital Signs 09/14/16 09/14/16 09/14/16 18:46 19:20 23:52 Temperature 98.1 F 99.1 F Pulse Rate 51 96 Respiratory 18 20 16 Rate Blood Pressure 130/69 134/76 (mmHg) O2 Sat by Pulse 100 100 Oximetry 09/15/16 09/15/16 09/15/16 03:02 03:36 07:41 Temperature 98.6 F 98.1 F Pulse Rate 94 75 Respiratory 16 20 Rate Blood Pressure 120/65 120/53 (mmHg) O2 Sat by Pulse 100 100 100 Oximetry Appearance: morbid obesity Ears/Nose/Mouth/Throat: Clear Oropharnyx Neck: Trachea Midline Respiratory: Symmetrical Chest Expansion and Respiratory Effort, - - distant sounds - no focal R/R/W Cardiovascular: NL Sounds; No Murmurs; No JVD Abdominal: NL Sounds; No Tenderness; No Distention, - - SMO Lymphatic: No Cervical Adenopathy Extremities: No Edema Skin: No Rash or Ulcers Neurological: Alert and Oriented x 3, NL Sensation Lines/Tubes/Other Access: Clean, Dry and Intact Peripheral IV Nutrition: Taking PO's Result Diagrams: 09/16/16 05:21 09/16/16 05:21 Assess/Plan/Problems-Billing . Assessment: 66 yo female with sob of unclear etiology. DDX: - R heart failure 2/2 occult BIPIN - OHS (VBG demonstrated LOW pCO2) - Occult cardiomyopathy (now that patient has AF - does she has occult AF and rate-related CM...though she is not rapid now) Current Medications: - Acetaminophen 650 mg PO Q6H PRN FEVER/PAIN - Aspirin 325 mg PO DAILY - Diltiazem HCl 240 mg PO BID - Docusate 200 mg PO BID - Doxycycline 100 mg PO DAILY - Duloxetine 60 mg PO DAILY - NS @ 85 mls/hr IV PER RATE - Insulin Human Lispro SSI Protocol - low dose - Melatonin 3 mg PO BEDTIME PRN Sleep - Omeprazole 20 mg PO DAILY - Ondansetron 4 mg IV Q6H PRN NAUSEA - Rivaroxaban 20 mg PO DAILY - Ropinirole 4 mg PO DAILY - Patient Problems (1) Shortness of breath on exertion Current Visit: Yes Status: Acute Priority: High Code(s): R06.02 - SHORTNESS OF BREATH Comment: - DDX broad: - Occult BIPIN causing RH failure? Cardiomyopathy? - ECHO very poor - no real conclusions can be made --> will c/s cardiology for ETELVINA. I think LV Fx needs to be understood. - Given the new finding of AF - Is this symptomatic AF or (if she was previously in fast AF) is this a rate-related cardiomyopathy. - severe deconditioning - After ETELVINA, will request pulmonary consultation if needed. (2) Morbid obesity with BMI of 50.0-59.9, adult Current Visit: Yes Status: Acute Priority: High Code(s): E66.01 - MORBID ( SEVERE) OBESITY DUE TO EXCESS CALORIES; Z68.43 - BODY MASS INDEX (BMI) 50-59.9 , ADULT Comment: - noted (3) History of pulmonary embolism Current Visit: Yes Status: Acute Priority: High Code(s): Z86.711 - PERSONAL HISTORY OF PULMONARY EMBOLISM Comment: - h/o PE --> on xarelto (4) Anemia Current Visit: Yes Status: Acute Priority: High Code(s): D64.9 - ANEMIA, UNSPECIFIED Comment: - dilutional component, but still too low - no evidence for bleeding. - recheck labs in AM. (5) Restless leg syndrome Current Visit: Yes Status: Chronic Priority: Medium Comment: - stable (6) Diabetes Current Visit: Yes Status: Chronic Priority: High Code(s): E11.9 - TYPE 2 DIABETES MELLITUS WITHOUT COMPLICATIONS Comment: - check A1C - CCH diet (diabetic) (7) HTN (hypertension) Current Visit: Yes Status: Chronic Priority: Medium Code(s): I10 - ESSENTIAL (PRIMARY) HYPERTENSION Comment: - continue current regimen (8) Atrial fibrillation Current Visit: Yes Status: Acute Priority: High Code(s): I48.91 - UNSPECIFIED ATRIAL FIBRILLATION Comment: - unclear duration - could be causing her sohrtness of breath - EETLVINA and possible CV tomorrow AM with anesthesia support
[2016-09-15] MEDS ORDERED: Potassium Chlor TAB* 10 MEQ TAB.ER PO ONE (18:17)
[2016-09-16] MEDS: Omeprazole CAP* 20 MG PO SCH (05:13)
[2016-09-16 05:40] LABS: Hematocrit 23 % (35-47); Hemoglobin 7.3 g/dl (12.0-16.0); Mean Corpuscular HGB Conc 32 g/dl (31-36); Mean Corpuscular Hemoglobin 25 pg (27-31); Mean Corpuscular Volume 77 fL (80-97); Mean Platelet Volume 8 um3 (7.4-10.4); Red Blood Count 2.94 10^6/ul (4.0-5.4); Red Cell Distribution Width 19 % (10.5-15)
[2016-09-16 05:47] LABS: Add Diff/Slide Review? Slide Review Added; Comments Flag Yes
[2016-09-16 05:55] LABS: BUN/Creatinine Ratio 36.1 (8-20); Calcium 8.1 mg/dL (8.6-10.3); EGFR African American 73.9 (>60); EGFR Non-African American 57.5 (>60); Potassium 3.4 mmol/L (3.5-5.0)
[2016-09-16 06:18] LABS: Microcytosis 1+
[2016-09-16 06:19] LABS: Hypochromasia 2+; Polychromasia 1+; Stomatocytes 1+
[2016-09-16] MEDS: Insulin LISPRO* 1 UNITS UNIT SUBCUT SCH ×4 (07:55→21:16)
[2016-09-16] MEDS ORDERED: Potassium Chlor TAB* 10 MEQ TAB.ER PO ONE ×2 (08:42→18:30)
[2016-09-16] MEDS ORDERED: fentaNYL* 50 MCG/ML 2 ML VIAL (100 MCG VIAL) ONE (10:34)
[2016-09-16] MEDS ORDERED: Midazolam* 1 MG/ML 5 ML VIAL (5 MG) ONE (10:34)
[2016-09-16] MEDS ORDERED: Lidocaine 2% VISCOUS* 15 ML UDC ONE (10:49)
--- NOTE | 2016-09-16 12:12 | TEE ---
Patient: ROMAIN LOU [facility] Rec#: [id number] : 1950 Date: 09/16/2016 Age: 66y Height: 162.6 cm / 64.0 in Weight: 130.6 kg / 287.8 lbs Sex: F BSA: 2.28 Room#: 443 Admit Date#: 09/13/2016 Type: Inpatient Referring: Kirk Hughes MD Performing: Pedro Alvares DO Reading: Pedro Alvares DO Ribbon Blocker: Ruth Mensah JAQUELINE Ribbon Blocker: Reina Youngblood Nurse: Brandt Darnell RN CC: Hussein Centeno MD Transesophageal Echocardiogram Indication: A-FIB BP: 108/36 HR: 84 Rhythm: A-Fib Findings History: Obesity, DM, HTN, Prior PE, BIPIN, Lyme's Disease. Technical Comments: The study quality is good. Left Ventricle: The left ventricular chamber size is normal. Global left ventricular wall motion and contractility are within normal limits. There is normal left ventricular systolic function. The estimated ejection fraction is 55-60%. The assessment of diastolic function is non-diagnostic. Left Atrium: The left atrium is mildly dilated. Unable to rule out a mass or thrombus in the left atrial appendage. Multiple views obtained. Many trebeculations noted. Right Ventricle: The right ventricular chamber size and systolic function are within normal limits. Right Atrium: The right atrial cavity size is normal. A patent foramen ovale is not demonstrated by color Doppler. Aortic Valve: The aortic valve is trileaflet. There is no evidence of aortic regurgitation. There is no evidence of aortic stenosis. Mitral Valve: The mitral valve leaflets appear normal. There is trace to mild mitral regurgitation. There is no evidence of mitral stenosis. Tricuspid Valve: The tricuspid valve leaflets are normal. There is trace tricuspid regurgitation. Unable to estimate the right ventricular systolic pressure. There is no tricuspid stenosis. Pulmonic Valve: The pulmonic valve appears normal. There is a trace pulmonic regurgitation. There is no pulmonic stenosis. Pericardium: There is no significant pericardial effusion. A pericardial fat pad is visualized. Aorta: There is no dilatation of the ascending aorta. There is no dilation of the aortic root. There is plaque visualized in the descending aorta. Pulmonary Artery: The main pulmonary artery appears normal. Venous: The bicaval view was obtained and appears normal. The pulmonary veins appear normal. 1 of 4 seen. ETELVINA Procedures: All standard views were attempted within the limitations of patient tolerance and safety. History and physical as well as labs were reviewed. The patient was in a fasting state. Risks and benefits of the procedure, including alternatives, were discussed and written informed consent was obtained. The patient and/or their health care it sales representative expressed understanding of the procedure, risks and benefits. Baseline and continuous monitoring of blood pressure, heart rate, pulse oximetry and heart rhythm was performed throughout the procedure. The appropriate time-out procedure was performed as per [facility] protocol. The patient was placed in the left lateral decubitus position. Sedation administered by the anesthesiologist in the operating room. Please see anesthesia record for medications given. An oral bite block was inserted for protection of oral dentition. The multiplane transesophageal echocardiogram probe was inserted through the posterior oropharynx and advanced into the esophagus without difficulty. Multiple 2D images were obtained of the heart and its related structures. Color flow Doppler was used for evaluation. Spectral Doppler was also used. The atrial septum was interrogated with color flow Doppler. At the conclusion of the procedure the probe was removed with continuous suction without complications. The patient tolerated the procedure with no apparent complications. Conclusions Patient in atrial fibrillaton at time of examination The left ventricular chamber size is normal. There is normal left ventricular systolic function. Global left ventricular wall motion and contractility are within normal limits. The estimated LV ejection fraction is 55-60%. The left atrium is mildly dilated. There is no obvious thrombus visualized in the LINDA although patient had multiple lobes and some not well visualized cannot entirely exclude this. The right ventricular chamber size and systolic function are within normal limits. Unable to estimate the right ventricular systolic pressure due to inadequate doppler signal No significant valvular abnormalities noted There is no significant pericardial effusion. There is mild plaque visualized in the aortic arch and descending aorta. No prior ETELVINA's available for comparison at time of examination. Measurements Name Value Normal Range Aortic Annulus 2.4 cm (1.4 - 2.6) Ao root diameter (2D) 3 cm (2.1 - 3.5) Ascending Ao 3.2 cm (2.1 - 3.4) Name Value Normal Range MV E-wave Vmax 1.1 m/sec - MV deceleration time 182 msec -
[2016-09-16] MEDS: Aspirin TAB* 325 MG PO SCH (13:44)
[2016-09-16] MEDS: Docusate CAP* 100 MG PO SCH ×2 (13:45→21:12)
[2016-09-16] MEDS: DOXYcycline CAP(*) 100 MG PO SCH (13:45)
[2016-09-16] MEDS: DULoxetine DR CAP* 30 MG CAP.DR PO SCH (13:45)
[2016-09-16] MEDS: Diltiazem CD CAP* 240 MG PO SCH ×2 (13:45→22:12)
[2016-09-16] MEDS: rOPINIRole TAB* 4 MG PO SCH (13:46)
[2016-09-16] MEDS: Rivaroxaban TAB(*) 20 MG TAB PO SCH (13:46)
--- NOTE | 2016-09-16 19:41 | PN ---
Subjective Date of Service: 09/16/16 Interval History: . ETELVINA done thid AM - patient tolerated well. LV was OK...still in AF (a new finding) Also, patient's H/H very low. I discussed and then ordered a PRBC transfusion ( 2 units). Patient agreed. Last colonoscopy was 15+ years ago. 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 We discussed perhaps moving forward with a colonscopy, after the PRBC transfusion. She is in agreement. Also, will stop doxycycline -- has taken this for 2+ weeks for lyme -- certainly has finished a full course. Finally, will hold xarelto for tomorrow in case colonoscopy on Monday (spoke with Dr. Jostin Kuo - and this is a possibility). Family History: Unchanged from Admission Social History: Unchanged from Admission Past Medical History: Unchanged from Admission Objective Active Medications: . Acetaminophen (Tylenol Tab*) 650 mg PO Q6H PRN PRN Reason: FEVER/PAIN Aspirin (Aspirin Tab*) 325 mg PO DAILY [facility] Last Admin: 09/16/16 13:44 Dose: 325 mg Diltiazem HCl (Cardizem Cd Cap*) 240 mg PO BID [facility] Last Admin: 09/16/16 13:45 Dose: 240 mg Docusate Sodium (Colace Cap*) 200 mg PO BID [facility] Last Admin: 09/16/16 13:45 Dose: Not Given Doxycycline Hyclate (Vibramycin Cap(*)) 100 mg PO DAILY [facility] Last Admin: 09/16/16 13:45 Dose: 100 mg Duloxetine HCl (Cymbalta Cap*) 60 mg PO DAILY [facility] Last Admin: 09/16/16 13:45 Dose: 60 mg Insulin Human Lispro (Humalog*) 0 units SUBCUT ACHS [facility] PRN Reason: Protocol Last Admin: 09/16/16 17:52 Dose: 2 units Melatonin (Melatonin (Nf)) 3 mg PO BEDTIME PRN; Protocol PRN Reason: Sleep Omeprazole (Prilosec Cap*) 20 mg PO DAILY@0600 [facility] Last Admin: 09/16/16 05:13 Dose: 20 mg Ondansetron HCl (Zofran Inj*) 4 mg IV Q6H PRN PRN Reason: NAUSEA Rivaroxaban (Xarelto (*)) 20 mg PO DAILY [facility] Last Admin: 09/16/16 13:46 Dose: 20 mg Ropinirole HCl (Requip*) 4 mg PO DAILY [facility] Last Admin: 09/16/16 13:46 Dose: 4 mg . Vital Signs 09/15/16 09/15/16 09/15/16 19:43 21:35 23:39 Temperature 98.1 F 98.1 F Pulse Rate 87 71 Respiratory 19 16 Rate Blood Pressure 111/58 99/46 (mmHg) O2 Sat by Pulse 98 96 99 Oximetry 09/16/16 09/16/16 09/16/16 03:28 07:36 07:58 Temperature 98.6 F 98.1 F Pulse Rate 78 83 Respiratory 16 14 18 Rate Blood Pressure 108/36 119/45 (mmHg) O2 Sat by Pulse 99 97 Oximetry Oxygen Devices in Use Now: None Appearance: morbidly obese woman in NAD in bed Eyes: No Scleral Icterus Ears/Nose/Mouth/Throat: NL Teeth, Lips, Gums Neck: Trachea Midline Respiratory: Symmetrical Chest Expansion and Respiratory Effort - at rest in bed Cardiovascular: NL Sounds; No Murmurs; No JVD Abdominal: - - morbidly obese Lymphatic: No Cervical Adenopathy Extremities: No Edema Skin: No Rash or Ulcers Neurological: Alert and Oriented x 3 Lines/Tubes/Other Access: Clean, Dry and Intact Peripheral IV Nutrition: Taking PO's Result Diagrams: 09/16/16 05:21 09/16/16 05:21 Assess/Plan/Problems-Billing . Assessment: 66 yo female with sob of unclear etiology. With seeming normal heart function and lung anatomy, is this due to her profound anemia? And further, what is causing her anemia? With abdominal lymphadenopathy (on CT), could colon cancer be a unifying diagnosis? Current Medications: - Acetaminophen 650 mg PO Q6H PRN FEVER/PAIN - Aspirin 325 mg PO DAILY - Diltiazem HCl 240 mg PO BID - Docusate 200 mg PO BID - Doxycycline 100 mg PO DAILY - Duloxetine 60 mg PO DAILY - NS @ 85 mls/hr IV PER RATE - Insulin Human Lispro SSI Protocol - low dose - Melatonin 3 mg PO BEDTIME PRN Sleep - Omeprazole 20 mg PO DAILY - Ondansetron 4 mg IV Q6H PRN NAUSEA - Rivaroxaban 20 mg PO DAILY - Ropinirole 4 mg PO DAILY - Patient Problems (1) Shortness of breath on exertion Current Visit: Yes Status: Acute Priority: High Code(s): R06.02 - SHORTNESS OF BREATH Comment: - ETELVINA shows relatively normal LV - Anemia now severe --> transfuse 2 units given normal cardiac fx - Consult GI for eval for colonoscopy. ?could this be colon cancer. - check stool for occult blood. (2) Atrial fibrillation Current Visit: Yes Status: Acute Priority: High Code(s): I48.91 - UNSPECIFIED ATRIAL FIBRILLATION SNOMED Code(s): 89286285 Comment: - unclear duration - could be causing her sohrtness of breath - anticoagulated - rate controlled (3) Loose stools Current Visit: Yes Priority: High Code(s): R19.5 - OTHER FECAL ABNORMALITIES Comment: - stop doxy (thought this is not classic to cause abx-associated diarrhea or C diff) - check occult blood - GI consult. (4) Morbid obesity with BMI of 50.0-59.9, adult Current Visit: Yes Status: Acute Priority: High Code(s): E66.01 - MORBID ( SEVERE) OBESITY DUE TO EXCESS CALORIES; Z68.43 - BODY MASS INDEX (BMI) 50-59.9 , ADULT Comment: - noted (5) History of pulmonary embolism Current Visit: Yes Status: Acute Priority: High Code(s): Z86.711 - PERSONAL HISTORY OF PULMONARY EMBOLISM Comment: - h/o PE --> on xarelto (6) Anemia Current Visit: Yes Status: Acute Priority: High Code(s): D64.9 - ANEMIA, UNSPECIFIED SNOMED Code(s): 649082304 Comment: - transfuse 2 units 09/16/16 - gi losses? (7) Restless leg syndrome Current Visit: Yes Status: Chronic Priority: Medium Comment: - stable (8) Diabetes Current Visit: Yes Status: Chronic Priority: High Code(s): E11.9 - TYPE 2 DIABETES MELLITUS WITHOUT COMPLICATIONS SNOMED Code(s): 54610826 Comment: - check A1C - CCH diet (diabetic) (9) HTN (hypertension) Current Visit: Yes Status: Chronic Priority: Medium Code(s): I10 - ESSENTIAL (PRIMARY) HYPERTENSION SNOMED Code(s): 76149299 Comment: - continue current regimen
[2016-09-16 20:32] LABS: Carcinoembryonic Antigen 4.1 ng/mL (0.1-5.0)
[2016-09-17 05:01] LABS: Hematocrit 29 % (35-47); Hemoglobin 9.4 g/dl (12.0-16.0); Mean Corpuscular HGB Conc 33 g/dl (31-36); Mean Corpuscular Hemoglobin 26 pg (27-31); Mean Corpuscular Volume 81 fL (80-97); Mean Platelet Volume 8 um3 (7.4-10.4); Red Cell Distribution Width 20 % (10.5-15); White Blood Count 5.4 10^3/ul (3.5-10.8)
[2016-09-17 05:07] LABS: Add Diff/Slide Review? Slide Review Added; Comments Flag Yes
[2016-09-17 05:09] LABS: Calcium 8.3 mg/dL (8.6-10.3); EGFR African American 71.3 (>60); EGFR Non-African American 55.5 (>60); Potassium 3.8 mmol/L (3.5-5.0)
[2016-09-17] MEDS: Omeprazole CAP* 20 MG PO SCH (05:40)
[2016-09-17] MEDS: Insulin LISPRO* 1 UNITS UNIT SUBCUT SCH ×4 (09:34→20:52)
[2016-09-17] MEDS: Docusate CAP* 100 MG PO SCH ×2 (10:22→20:42)
[2016-09-17] MEDS: DULoxetine DR CAP* 30 MG CAP.DR PO SCH (10:22)
[2016-09-17] MEDS: rOPINIRole TAB* 4 MG PO SCH (10:22)
[2016-09-17] MEDS: Diltiazem CD CAP* 240 MG PO SCH ×2 (10:22→20:53)
[2016-09-17] MEDS: Aspirin TAB* 325 MG PO SCH (10:22)
[2016-09-17] MEDS: Pantoprazole IV* 80 MG in NS 0.9% 250 ML* 250 ML IVPB SCH ×2 (12:35→22:54)
--- NOTE | 2016-09-17 12:54 | CONS ---
GASTROENTEROLOGY CONSULT: DATE: - ROOM #443 CONSULTING PHYSICIANS: Kirk Hughes MD; Hussein Centeno MD* REASON FOR CONSULT: presenting CC SOB then weakness, fall in hemoglobin 4 gms to 7.3 over 5 days with MCV 77 and heme- positive stool. HISTORY OF PRESENT ILLNESS: This 66-year-old woman, super-morbidly obese, was admitted with weakness and shortness of breath after 2 ER visits. While a workup directed to the heart and lungs has been taking place, her hemoglobin has fallen sequentially about a gram a day, although there has been no overt blood loss. There has been no vomiting or overt blood in the stool. As an outpatient, she says she has a weakness for pasta explaining the failure of her bariatric surgery She does not drink much other than a glass of wine episodically. The bariatric weight loss surgery was 2007 in [place]. She has been well above 270 pounds for a number of years. She states that she is not subject to gastrointestinal problems in general. Her bowel pattern is regular, daily, and without bleeding and had not changed recently as an outpatient. She had had a sigmoidoscopy by Dr. Ohara in 2003 and she had a partial colectomy for colovaginal fistula is [place] around 2004 and then was reattached a few months later. Through the ensuing years, she has not had any particular gastrointestinal problem. Outpatient meds have not included any acid blockers. Recent events at her primary office the last couple of weeks have included a complaint of fevers and then she had a positive Lyme serology, so was started on doxycycline about Sep 02. At a followup visit on 09/08/16 she complained of shortness of breath and BNP was normal at 12.6 (under 100 normal) and then D- dimer 2670 over the cut off of 400 and she was given Xarelto. She then felt weak again and had a couple of emergency room visits on the and then , being admitted after the even though a CTA was negative. She had no gastrointestinal complaints at that time. CT scan of the abdomen with oral, but not IV contrast showed the suture line from the Ryan-en-Y gastric bypass in the left upper quadrant and many lymph nodes in that area. They are mostly in the peripancreatic area. The oral contrast had gone down beyond the small bowel to the colon and outlined that nicely and there was no obvious abnormality there and the views are actually reasonably good with oral contrast reaching down to the rectosigmoid. There was a large ventral hernia. She had a ETELVINA in the OR with anesthesia assistance, receiving Versed 5 and fentanyl 100, tolerating that exam well. Through these days, her hemoglobin fell from 11.5 on admission to 7.3. Again, there has been no overt bleeding. PAST MEDICAL HISTORY: 1. Morbid obesity. 2. Failed Ryan-en-Y gastric bypass. 3. History of pulmonary emboli and DVT - the first occurring on control pills and Dr Maikel Yoon started her on warfarin. The second occurred with . She has never had a blood clot since then, though it has been in the differential diagnosis frequently. 4. Cholecystectomy. 5. 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 6. AODM. 7. Hypertension. 8. History of depression. FAMILY HISTORY: Her mother had a pulmonary embolism and . Her father had coronary artery disease. SOCIAL HISTORY: She is a disabled former public health social worker at [employer] and also worked at [employer]. Her daughter, Ami Lin, lives in [place], [place], has a bagel-making business. She has a sister in [facility] and one in [place] who is an [employer]. She is a nonsmoker. REVIEW OF SYSTEMS: She denies acid indigestion or dysphagia, vomiting, blood in the stool. Her loose stools began after admission. Prior to the doxycycline , she thinks it has been several years since she has had an antibiotic. She has been followed by Dr Centeno mostly for mammograms and other health maintenance. She was admitted with parotitis in March 2013. PHYSICAL EXAM: She is a morbidly obese woman lying in bed, sleepy, but in no acute distress. HEENT exam shows no icterus. She has no adenopathy. Lungs are equivalent, but breath sounds are poor bilaterally. Breast and pelvic exam is deferred. Her abdomen is morbidly obese with stretch weiss, striae, and hyperpigmentation. There is a grossly redundant panniculus with very large ventral hernia. Skin scars are well-healed. She positions herself on her side with difficulty being unable to mobilize her flanks. Digital rectal is normal and her stool is pasty, loose, brown, and submitted for Hemoccult. Exam is tolerated well. Extremities show 1 to 2+ edema. DIAGNOSTIC STUDIES/LABORATORY DATA: BUN in the 50s, creatinine 1.3. LFTs have shown alk phos 443 on 09/12/16 and then 248 on 09/15/16. LDH normal at 154. Addendum: alk phos at [facility] (primary office on 08/29/16 was 103 [ULN 110]) CT scan - impressive lymph nodes seen in the upper abdominal area on axial views 16 of 112 and then coronal views 47 to 51 of 136. There is no obvious liver abnormality. IMPRESSION: This morbidly obese 66-year-old woman with a history of pulmonary emboli, was admitted mostly because of complaints of shortness of breath and weakness. The direct effects of her excess weight as an explanation are difficult to differentiate from other medical considerations, especially with strong family history of clots. At the moment there is no history of past cardiac disease and her cardiac evaluation here has been normal with normal BNPs and a transesophageal echo that did not find anything remarkable. The focus has shifted now to the GI tract with the fall in hemoglobin and heme- positive stool and curiously, an elevation in alkaline phosphatase. Some of the Hg fall could be rehydration but the amount is more than that would account for. She has received some anticoagulation and it is possible that she has had some bleeding from the upper GI tract (Xarelto?) on a somewhat accelerated basis , but not enough to be an acute bleeding presentation. She will be placed on a PPI and when anesthesia assistance is available, plan for upper endoscopy and probably colonoscopy to the extent that is possible. Although she tolerated the ETELVINA without incident with a reasonable dose of medication, the endoscopy is predicted to be more difficult than average and anesthesia assistance would be an asset. The sudden rise is alkaline phosphatase is unexplained possibly on the basis of a medication - the new ones being doxycycline and Xarelto. She has had her gallbladder out and has not had any pain to correspond with possible common duct stone. Discussed with Dr Peña, RN and sister Rn 90 minutes. [id number]/[facility] #: [id number] MTDGil
--- NOTE | 2016-09-17 15:38 | PN ---
Subjective Date of Service: 09/17/16 Interval History: Less SOB today. Sl loose stools. No new c/o. Family History: Unchanged from Admission Social History: Unchanged from Admission Past Medical History: Unchanged from Admission Objective Active Medications: Acetaminophen (Tylenol Tab*) 650 mg PO Q6H PRN PRN Reason: FEVER/PAIN Aspirin (Aspirin Tab*) 325 mg PO DAILY [facility] Last Admin: 09/17/16 10:22 Dose: 325 mg Diltiazem HCl (Cardizem Cd Cap*) 240 mg PO BID [facility] Last Admin: 09/17/16 10:22 Dose: 240 mg Docusate Sodium (Colace Cap*) 200 mg PO BID [facility] Last Admin: 09/17/16 10:22 Dose: Not Given Duloxetine HCl (Cymbalta Cap*) 60 mg PO DAILY [facility] Last Admin: 09/17/16 10:22 Dose: 60 mg Pantoprazole Sodium 80 mg/ (Sodium Chloride) 250 mls @ 25 mls/hr IVPB Q10H [facility] Stop: 09/19/16 11:59 Last Admin: 09/17/16 12:35 Dose: 25 mls/hr Insulin Human Lispro (Humalog*) 0 units SUBCUT ACHS [facility] PRN Reason: Protocol Last Admin: 09/17/16 12:34 Dose: 2 units Omeprazole (Prilosec Cap*) 20 mg PO BID [facility] Ondansetron HCl (Zofran Inj*) 4 mg IV Q6H PRN PRN Reason: NAUSEA Ropinirole HCl (Requip*) 4 mg PO DAILY [facility] Last Admin: 09/17/16 10:22 Dose: 4 mg Vital Signs 09/16/16 09/16/16 09/16/16 16:00 16:21 19:52 Temperature 97.9 F Pulse Rate 73 Respiratory 18 Rate Blood Pressure 112/41 (mmHg) O2 Sat by Pulse 94 97 100 Oximetry 09/16/16 09/16/16 09/16/16 20:00 20:14 22:52 Temperature 97.3 F 97.8 F Pulse Rate 72 81 Respiratory 18 18 18 Rate Blood Pressure 112/53 120/46 (mmHg) O2 Sat by Pulse 97 95 Oximetry 09/16/16 09/16/16 09/17/16 23:23 23:34 00:00 Temperature 97.5 F 97.7 F Pulse Rate 80 72 Respiratory 18 Rate Blood Pressure 120/55 116/54 (mmHg) O2 Sat by Pulse 98 97 97 Oximetry 09/17/16 09/17/16 09/17/16 02:11 03:53 07:24 Temperature 97.9 F 97.9 F 98.2 F Pulse Rate 71 70 89 Respiratory 18 16 16 Rate Blood Pressure 125/54 105/46 128/67 (mmHg) O2 Sat by Pulse 97 97 100 Oximetry 09/17/16 09/17/16 09/17/16 08:00 11:09 15:15 Temperature 97.3 F Pulse Rate 84 Respiratory 18 16 Rate Blood Pressure 110/51 (mmHg) O2 Sat by Pulse 98 100 Oximetry Oxygen Devices in Use Now: None Appearance: Alert, supine in bed. In good spirits. Looks comfortable. Eyes: No Scleral Icterus Ears/Nose/Mouth/Throat: Clear Oropharnyx, Mucous Membranes Moist Neck: NL Appearance and Movements; NL JVP, No Thyroid Enlargement, Masses Respiratory: Symmetrical Chest Expansion and Respiratory Effort, Clear to Auscultation, Clear to Percussion Cardiovascular: NL Sounds; No Murmurs; No JVD, RRR, No Edema, - Abdominal: NL Sounds; No Tenderness; No Distention, No Hepatosplenomegaly, - Extremities: No Edema, No Clubbing, Cyanosis, - Skin: No Rash or Ulcers, No Nodules or Sclerosis, - Neurological: Alert and Oriented x 3, NL Sensation Result Diagrams: 09/17/16 04:43 09/17/16 04:43 Microbiology and Other Data: Microbiology 09/17/16 15:00 Stool Gross Appearance - Final Stool 09/17/16 07:20 Stool Gross Appearance - Final Stool Stool Occult Blood (FABY) - Final 09/17/16 10:00 Stool Gross Appearance - Final Stool Stool Occult Blood (FABY) - Final Assess/Plan/Problems-Billing . Assessment: 66 yo female with sob of unclear etiology. With seeming normal heart function and lung anatomy, is this due to her profound anemia? And further, what is causing her anemia? With abdominal lymphadenopathy (on CT), could colon cancer be a unifying diagnosis? Current Medications: - Acetaminophen 650 mg PO Q6H PRN FEVER/PAIN - Aspirin 325 mg PO DAILY - Diltiazem HCl 240 mg PO BID - Docusate 200 mg PO BID - Doxycycline 100 mg PO DAILY - Duloxetine 60 mg PO DAILY - NS @ 85 mls/hr IV PER RATE - Insulin Human Lispro SSI Protocol - low dose - Melatonin 3 mg PO BEDTIME PRN Sleep - Omeprazole 20 mg PO DAILY - Ondansetron 4 mg IV Q6H PRN NAUSEA - Rivaroxaban 20 mg PO DAILY - Ropinirole 4 mg PO DAILY - Patient Problems (1) Anemia Current Visit: Yes Status: Acute Priority: High Code(s): D64.9 - ANEMIA, UNSPECIFIED SNOMED Code(s): 008974505 Comment: - transfused 2 units 09/16/16 - Discussed with Dr. Kuo. Consider EGD/colonoscopy. Labs ordered for 09/18. (2) Atrial fibrillation Current Visit: Yes Status: Acute Priority: High Code(s): I48.91 - UNSPECIFIED ATRIAL FIBRILLATION SNOMED Code(s): 86221605 Comment: Continue diltiazem Rivaroxaban on hold. rate controlled (3) History of pulmonary embolism Current Visit: Yes Status: Acute Priority: High Code(s): Z86.711 - PERSONAL HISTORY OF PULMONARY EMBOLISM SNOMED Code(s): 846446679 Comment: Rivaroxaban on hold. (4) Morbid obesity Current Visit: Yes Status: Acute Code(s): E66.01 - MORBID (SEVERE) OBESITY DUE TO EXCESS CALORIES SNOMED Code(s): 028781040 Comment: BMI 49.3. (5) Diabetes Current Visit: Yes Status: Chronic Priority: High Code(s): E11.9 - TYPE 2 DIABETES MELLITUS WITHOUT COMPLICATIONS SNOMED Code(s): 20052634 Comment: Well controlled with SSI. (6) HTN (hypertension) Current Visit: Yes Status: Chronic Priority: Medium Code(s): I10 - ESSENTIAL (PRIMARY) HYPERTENSION SNOMED Code(s): 82453680 Comment: - continue diltiazem
[2016-09-18] MEDS: rOPINIRole TAB* 4 MG PO SCH ×2 (01:14→20:42)
[2016-09-18 07:17] LABS: Hematocrit 30 % (35-47); Hemoglobin 9.9 g/dl (12.0-16.0); Mean Corpuscular HGB Conc 33 g/dl (31-36); Mean Corpuscular Hemoglobin 26 pg (27-31); Mean Corpuscular Volume 81 fL (80-97); Mean Platelet Volume 7 um3 (7.4-10.4); Red Blood Count 3.74 10^6/ul (4.0-5.4); Red Cell Distribution Width 20 % (10.5-15); White Blood Count 5.2 10^3/ul (3.5-10.8)
[2016-09-18 07:31] LABS: Comments Flag Yes
[2016-09-18 07:32] LABS: Add Diff/Slide Review? Slide Review Added
[2016-09-18 07:33] LABS: BUN/Creatinine Ratio 24.4 (8-20); Calcium 8.3 mg/dL (8.6-10.3); EGFR African American 89.7 (>60); EGFR Non-African American 69.7 (>60); Potassium 3.5 mmol/L (3.5-5.0)
[2016-09-18] MEDS: Insulin LISPRO* 1 UNITS UNIT SUBCUT SCH ×4 (08:56→20:42)
[2016-09-18 08:57] LABS: Hypochromasia 2+; Polychromasia 1+; Target Cells 1+
[2016-09-18] MEDS: Diltiazem CD CAP* 240 MG PO SCH ×2 (09:27→20:42)
[2016-09-18] MEDS: DULoxetine DR CAP* 30 MG CAP.DR PO SCH (09:27)
[2016-09-18] MEDS: Docusate CAP* 100 MG PO SCH ×2 (09:28→20:42)
[2016-09-18] MEDS: Pantoprazole IV* 80 MG in NS 0.9% 250 ML* 250 ML IVPB SCH ×2 (09:57→20:36)
--- NOTE | 2016-09-18 13:58 | PN ---
Subjective Date of Service: 09/18/16 Interval History: C/O with walking in the torres, states her O2 sat goes down with walking. Brown BM. No new c/o. Family History: Unchanged from Admission Social History: Unchanged from Admission Past Medical History: Unchanged from Admission Objective Active Medications: Acetaminophen (Tylenol Tab*) 650 mg PO Q6H PRN PRN Reason: FEVER/PAIN Diltiazem HCl (Cardizem Cd Cap*) 240 mg PO BID [facility] Last Admin: 09/18/16 09:27 Dose: 240 mg Docusate Sodium (Colace Cap*) 200 mg PO BID [facility] Last Admin: 09/18/16 09:28 Dose: Not Given Duloxetine HCl (Cymbalta Cap*) 60 mg PO DAILY [facility] Last Admin: 09/18/16 09:27 Dose: 60 mg Pantoprazole Sodium 80 mg/ (Sodium Chloride) 250 mls @ 25 mls/hr IVPB Q10H [facility] Stop: 09/19/16 11:59 Last Admin: 09/18/16 09:57 Dose: 25 mls/hr Insulin Human Lispro (Humalog*) 0 units SUBCUT ACHS [facility] PRN Reason: Protocol Last Admin: 09/18/16 12:54 Dose: 2 units Omeprazole (Prilosec Cap*) 20 mg PO BID [facility] Ondansetron HCl (Zofran Inj*) 4 mg IV Q6H PRN PRN Reason: NAUSEA Ropinirole HCl (Requip*) 4 mg PO BEDTIME [facility] Last Admin: 09/18/16 01:14 Dose: 4 mg Vital Signs 09/17/16 09/17/16 09/17/16 15:00 15:15 15:57 Temperature 98.0 F Pulse Rate 83 Respiratory 17 Rate Blood Pressure 136/60 (mmHg) O2 Sat by Pulse 98 100 98 Oximetry 09/17/16 09/17/16 09/17/16 16:00 18:50 20:00 Temperature 98.0 F Pulse Rate 89 Respiratory 18 17 Rate Blood Pressure 135/53 (mmHg) O2 Sat by Pulse 98 100 Oximetry 09/17/16 09/18/16 09/18/16 23:20 00:00 03:21 Temperature 97.5 F 98.1 F Pulse Rate 83 80 Respiratory 16 16 Rate Blood Pressure 134/57 133/56 (mmHg) O2 Sat by Pulse 99 99 97 Oximetry 09/18/16 09/18/16 09/18/16 07:43 08:00 09:32 Temperature 98.6 F Pulse Rate 76 Respiratory 16 16 16 Rate Blood Pressure 137/67 (mmHg) O2 Sat by Pulse 100 Oximetry 09/18/16 09/18/16 11:46 12:00 Temperature 97.7 F Pulse Rate 93 Respiratory 16 Rate Blood Pressure 142/72 (mmHg) O2 Sat by Pulse 98 100 Oximetry Oxygen Devices in Use Now: None Appearance: Alert, partly up in bed. In fair spirits. Looks comfortable. Ears/Nose/Mouth/Throat: Clear Oropharnyx, Mucous Membranes Moist Neck: NL Appearance and Movements; NL JVP, No Thyroid Enlargement, Masses Respiratory: Symmetrical Chest Expansion and Respiratory Effort, Clear to Auscultation, Clear to Percussion Cardiovascular: RRR, No Edema Extremities: No Edema, No Clubbing, Cyanosis, - Skin: No Rash or Ulcers, No Nodules or Sclerosis, - Neurological: Alert and Oriented x 3, NL Sensation Result Diagrams: 09/18/16 07:03 09/18/16 07:03 Microbiology and Other Data: Microbiology 09/17/16 15:00 Stool Gross Appearance - Final Stool 09/17/16 07:20 Stool Gross Appearance - Final Stool Stool Occult Blood (FABY) - Final 09/17/16 10:00 Stool Gross Appearance - Final Stool Stool Occult Blood (FABY) - Final Assess/Plan/Problems-Billing . Assessment: 66 yo female with sob of unclear etiology. With seeming normal heart function and lung anatomy, is this due to her profound anemia? And further, what is causing her anemia? With abdominal lymphadenopathy (on CT), could colon cancer be a unifying diagnosis? Current Medications: - Acetaminophen 650 mg PO Q6H PRN FEVER/PAIN - Aspirin 325 mg PO DAILY - Diltiazem HCl 240 mg PO BID - Docusate 200 mg PO BID - Doxycycline 100 mg PO DAILY - Duloxetine 60 mg PO DAILY - NS @ 85 mls/hr IV PER RATE - Insulin Human Lispro SSI Protocol - low dose - Melatonin 3 mg PO BEDTIME PRN Sleep - Omeprazole 20 mg PO DAILY - Ondansetron 4 mg IV Q6H PRN NAUSEA - Rivaroxaban 20 mg PO DAILY - Ropinirole 4 mg PO DAILY - Patient Problems (1) Anemia Current Visit: Yes Status: Acute Priority: High Code(s): D64.9 - ANEMIA, UNSPECIFIED SNOMED Code(s): 667129989 Comment: H&H stable 09/18. - transfused 2 units 09/16/16 - Discussed with Dr. Kuo 09/17. EGD planned for 09/20. Pantoprazole drip until noon 09/19, start bid omeprazole after that. (2) Atrial fibrillation Current Visit: Yes Status: Acute Priority: High Code(s): I48.91 - UNSPECIFIED ATRIAL FIBRILLATION SNOMED Code(s): 86685251 Comment: Continue diltiazem Rivaroxaban on hold. rate controlled (3) History of pulmonary embolism Current Visit: Yes Status: Acute Priority: High Code(s): Z86.711 - PERSONAL HISTORY OF PULMONARY EMBOLISM SNOMED Code(s): 462198422 Comment: Rivaroxaban on hold. (4) Morbid obesity Current Visit: Yes Status: Acute Code(s): E66.01 - MORBID (SEVERE) OBESITY DUE TO EXCESS CALORIES SNOMED Code(s): 662672526 Comment: BMI 49.3. (5) Diabetes Current Visit: Yes Status: Chronic Priority: High Code(s): E11.9 - TYPE 2 DIABETES MELLITUS WITHOUT COMPLICATIONS SNOMED Code(s): 87291970 Comment: Well controlled with SSI. (6) HTN (hypertension) Current Visit: Yes Status: Chronic Priority: Medium Code(s): I10 - ESSENTIAL (PRIMARY) HYPERTENSION SNOMED Code(s): 53154345 Comment: - continue diltiazem (7) Shortness of breath on exertion Current Visit: Yes Status: Acute Priority: High Code(s): R06.02 - SHORTNESS OF BREATH SNOMED Code(s): 43473480 Comment: - ETELVINA shows relatively normal LV I will call Dr. Garcia on 09/19 regarding consultation.
[2016-09-18 19:42] LABS: Albumin 2.7 g/dL (3.2-5.2); Direct Bilirubin 0.2 mg/dL (0.03-0.18); Indirect Bilirubin 0.6 mg/dL (0.3-1.0); Total Bilirubin 0.8 mg/dL (0.2-1.0); Total Protein 6.7 g/dL (6.4-8.9)
[2016-09-19] MEDS: Insulin LISPRO* 1 UNITS UNIT SUBCUT SCH ×4 (08:18→20:38)
[2016-09-19] MEDS: Pantoprazole IV* 80 MG in NS 0.9% 250 ML* 250 ML IVPB SCH (08:25)
[2016-09-19] MEDS: Diltiazem CD CAP* 240 MG PO SCH ×2 (08:25→20:38)
[2016-09-19] MEDS: Docusate CAP* 100 MG PO SCH ×2 (08:25→19:49)
[2016-09-19] MEDS: DULoxetine DR CAP* 30 MG CAP.DR PO SCH (08:25)
--- NOTE | 2016-09-19 15:39 | PN ---
Subjective Date of Service: 09/19/16 Interval History: No new c/o. Walks in the [place] sometimes. Family History: Unchanged from Admission Social History: Unchanged from Admission Past Medical History: Unchanged from Admission Objective Active Medications: Acetaminophen (Tylenol Tab*) 650 mg PO Q6H PRN PRN Reason: FEVER/PAIN Diltiazem HCl (Cardizem Cd Cap*) 240 mg PO BID [facility] Last Admin: 09/19/16 08:25 Dose: 240 mg Docusate Sodium (Colace Cap*) 200 mg PO BID [facility] Last Admin: 09/19/16 08:25 Dose: Not Given Duloxetine HCl (Cymbalta Cap*) 60 mg PO DAILY [facility] Last Admin: 09/19/16 08:25 Dose: 60 mg Insulin Human Lispro (Humalog*) 0 units SUBCUT ACHS [facility] PRN Reason: Protocol Last Admin: 09/19/16 12:11 Dose: 2 units Omeprazole (Prilosec Cap*) 20 mg PO BID [facility] Ondansetron HCl (Zofran Inj*) 4 mg IV Q6H PRN PRN Reason: NAUSEA Polyethylene Glycol/Electrolytes (Golytely*) 4,000 ml PO 1600 ONE Stop: 09/19/16 16:01 Ropinirole HCl (Requip*) 4 mg PO BEDTIME [facility] Last Admin: 09/18/16 20:42 Dose: 4 mg Vital Signs 09/18/16 09/18/16 09/18/16 15:38 16:00 17:22 Temperature 97.9 F Pulse Rate 90 Respiratory 16 Rate Blood Pressure 137/65 (mmHg) O2 Sat by Pulse 100 100 100 Oximetry 09/18/16 09/18/16 09/18/16 19:59 20:00 23:41 Temperature 98.0 F 98.2 F Pulse Rate 95 88 Respiratory 20 20 16 Rate Blood Pressure 144/72 125/64 (mmHg) O2 Sat by Pulse 96 98 Oximetry 09/19/16 09/19/16 09/19/16 00:00 02:38 03:20 Temperature 98.1 F Pulse Rate 98 Respiratory 20 Rate Blood Pressure 157/55 (mmHg) O2 Sat by Pulse 98 98 100 Oximetry 09/19/16 09/19/16 09/19/16 07:10 07:38 07:40 Temperature 97.9 F Pulse Rate 95 Respiratory 16 18 18 Rate Blood Pressure 147/62 (mmHg) O2 Sat by Pulse 100 Oximetry 09/19/16 09/19/16 11:03 14:37 Temperature 98.4 F 98.5 F Pulse Rate 99 95 Respiratory 16 18 Rate Blood Pressure 130/64 116/54 (mmHg) O2 Sat by Pulse 95 96 Oximetry Oxygen Devices in Use Now: None Appearance: Alert, suppine in bed. In good spirits. Looks comfortable. Eyes: No Scleral Icterus Extremities: No Edema, No Clubbing, Cyanosis, - Skin: No Rash or Ulcers, No Nodules or Sclerosis, - Neurological: Alert and Oriented x 3, NL Sensation Result Diagrams: 09/18/16 07:03 09/18/16 07:03 Microbiology and Other Data: Microbiology 09/17/16 15:00 Stool Gross Appearance - Final Stool 09/17/16 07:20 Stool Gross Appearance - Final Stool Stool Occult Blood (FABY) - Final 09/17/16 10:00 Stool Gross Appearance - Final Stool Stool Occult Blood (FABY) - Final Assess/Plan/Problems-Billing . Assessment: 66 yo female with sob of unclear etiology. With seeming normal heart function and lung anatomy, is this due to her profound anemia? And further, what is causing her anemia? With abdominal lymphadenopathy (on CT), could colon cancer be a unifying diagnosis? Current Medications: - Acetaminophen 650 mg PO Q6H PRN FEVER/PAIN - Aspirin 325 mg PO DAILY - Diltiazem HCl 240 mg PO BID - Docusate 200 mg PO BID - Doxycycline 100 mg PO DAILY - Duloxetine 60 mg PO DAILY - NS @ 85 mls/hr IV PER RATE - Insulin Human Lispro SSI Protocol - low dose - Melatonin 3 mg PO BEDTIME PRN Sleep - Omeprazole 20 mg PO DAILY - Ondansetron 4 mg IV Q6H PRN NAUSEA - Rivaroxaban 20 mg PO DAILY - Ropinirole 4 mg PO DAILY - Patient Problems (1) Anemia Current Visit: Yes Status: Acute Priority: High Code(s): D64.9 - ANEMIA, UNSPECIFIED SNOMED Code(s): 331031237 Comment: H&H stable 09/18. - transfused 2 units 09/16/16 - Discussed with Dr. Kuo 09/17. EGD/colonoscopy planned for 09/20. Pantoprazole drip until noon 09/19, start bid omeprazole after that. Fe/TIBC, ferritin 09/20. If iron stores low can start iron supplementation after endoscopy. (2) Atrial fibrillation Current Visit: Yes Status: Acute Priority: High Code(s): I48.91 - UNSPECIFIED ATRIAL FIBRILLATION SNOMED Code(s): 82757335 Comment: Continue diltiazem Rivaroxaban on hold. rate controlled (3) History of pulmonary embolism Current Visit: Yes Status: Acute Priority: High Code(s): Z86.711 - PERSONAL HISTORY OF PULMONARY EMBOLISM SNOMED Code(s): 899121423 Comment: Rivaroxaban on hold. (4) Morbid obesity Current Visit: Yes Status: Acute Code(s): E66.01 - MORBID (SEVERE) OBESITY DUE TO EXCESS CALORIES SNOMED Code(s): 591640831 Comment: BMI 49.3. (5) Diabetes Current Visit: Yes Status: Chronic Priority: High Code(s): E11.9 - TYPE 2 DIABETES MELLITUS WITHOUT COMPLICATIONS SNOMED Code(s): 16977213 Comment: Well controlled with SSI. (6) HTN (hypertension) Current Visit: Yes Status: Chronic Priority: Medium Code(s): I10 - ESSENTIAL (PRIMARY) HYPERTENSION SNOMED Code(s): 52311284 Comment: - continue diltiazem (7) Shortness of breath on exertion Current Visit: Yes Status: Acute Priority: High Code(s): R06.02 - SHORTNESS OF BREATH SNOMED Code(s): 96168106 Comment: ETELVINA shows relatively normal LV I spoke with Dr. Garcia on 09/19. Etiology of HECK a combination of anemia and MO.
[2016-09-19] MEDS ORDERED: PEG 3000 GI LAVAGE* 1 GALLON PO ONE (16:00)
--- NOTE | 2016-09-19 19:35 | CONS ---
PULMONARY CONSULTATION REPORT: DATE OF CONSULTATION: 09/19/16 CONSULTATION REQUESTED BY: Ravindra Clarke MD REASON FOR CONSULTATION: Evaluation of shortness of breath. HISTORY OF PRESENT ILLNESS: The patient is a 66-year-old obese female with history of diabetes, hypertension, DVT, and PE in the past. The patient was brought into the ED for evaluation of sudden onset of shortness of breath. The patient was not feeling well 2 days prior to the presentation to the emergency room. The patient initially came into the ED for evaluation of chest discomfort in the middle of chest associated with shortness of breath. Evaluation in the emergency room did not reveal any obvious etiology and she was discharged home with a diagnosis of GERD. The patient had significant shortness of breath that evening. The patient could not ambulate to the rest room. The patient was concerned and presented back to the emergency room. The patient was noted to be hypoxemic with O2 sats in 80s upon EMS arrival in the ambulance. The patient was given nebulizer treatment and upon arrival in the ED , her saturations have improved. The patient was recently diagnosed with Lyme disease and was started on doxycycline. The patient's INR has been elevated and she was started on rivaroxaban. The patient had CT of the chest performed in the emergency room. I have personally reviewed CT scan of the chest and with the patient. The patient with no evidence of pulmonary embolism. No evidence of airspace opacities. No evidence of interstitial lung disease. Old fibrosis noted. No mediastinal or hilar adenopathy was noted. The patient was seen and examined at bedside earlier today. The patient reported mild improvement of shortness of breath. Of note, she was also noted to have acute drop in her hemoglobin and was given 2 units PRBC transfusion. Her O2 sats have remained in high 90s today with ambulation without oxygen. The patient has needed oxygen 2 days back. The patient reports improvement in shortness of breath; however, she is concerned about having symptoms come back with ambulation. The patient was evaluated by GI for guaiac-positive stools and drop in hemoglobin. She is scheduled for upper endoscopy tomorrow. The patient also had an echocardiogram during current admission and was noted to have normal systolic function of left ventricle. No evidence of dilated RV pressure or volume overload was noted. Pulmonary pressures were not estimated. The patient is otherwise stable on room air. PAST MEDICAL HISTORY: 1. Super morbid obesity. 2. Diabetes. 3. Hypertension. 4. DVT and PE x2. 5. Diverticular disease, status post colostomy and reversal. 6. Restless leg syndrome. 7. Osteoarthritis. PAST SURGICAL HISTORY: Colostomy and reversal cholecystectomy. MEDICATIONS AT HOME: 1. Cymbalta 60 mg daily. 2. Dyazide 1 cap b.i.d. 3. Diltiazem 240 mg b.i.d. 4. Ropinirole 4 mg daily. 5. Doxycycline 100 mg daily. 6. Hydrocodone/acetaminophen 1 tablet q.4 hours. 7. Rivaroxaban 10 mg daily. ALLERGIES: ERYTHROMYCIN. FAMILY HISTORY: Mother passed of PE. Father passed of coronary artery disease. SOCIAL HISTORY: No alcohol, tobacco, or drug abuse. REVIEW OF SYSTEMS: All 14 systems were reviewed and as per the HPI. PHYSICAL EXAMINATION: General: The patient sitting up in chair, in no apparent distress. Vital Signs: Temperature 98.5, heart rate 95 beats per minute, respiratory rate 18 per minute, O2 sat 96% on room air and blood pressure 116/54. HEENT: Pupils are equal and reactive to light, mucous membranes moist. Neck: Supple. No JVD. Trachea in midline. Respiratory: Good air entry bilaterally. No crackles or wheezes. Cardiovascular: Regular rate and rhythm. Tachycardic. No murmurs, gallops, or rubs. Abdomen: Obese. Bowel sounds present, nontender, and nondistended. Musculoskeletal: Normal range of motion. Neuro: No focal deficits. DIAGNOSTIC STUDIES/LAB DATA: EKG showed normal sinus rhythm at 99. The patient noted to be in atrial fibrillation during echocardiogram. CTA was limited exam; however, with no evidence of pulmonary embolism and no evidence of interstitial lung disease. IMPRESSION AND RECOMMENDATIONS: 66-year-old morbidly obese female with shortness of breath in setting of acute anemia, in setting of diastolic congestive heart failure and V/Q mismatch due to basal atelectasis secondary to ability to take deep breath. The patient might be having obesity hypoventilation syndrome; however, it is less likely given normal bicarb levels on VBG and also on BMP. The patient might have obstructive sleep apnea. She will benefit from sleep study evaluation as outpatient. She is not needing supplemental oxygen at this time. She is undergoing evaluation for cause of anemia. The patient did not have any shortness of breath prior to this current presentation. Her symptoms are acute in onset correlating with anemia. She does not have parenchymal opacities on CT chest, she is non-smoker and doesn 't have h/o asthma. She might have pulmonary hypertension given history of PEs, DVTs, and body habitus concerning for sleep apnea. Thank you for allowing me to participate in the care of your patient. [id number]/[facility] #: [id number] LULI
[2016-09-19] MEDS: rOPINIRole TAB* 4 MG PO SCH (20:38)
[2016-09-19] MEDS: Omeprazole CAP* 20 MG PO SCH (20:38)
[2016-09-20 05:27] LABS: Hematocrit 33 % (35-47); Hemoglobin 10.5 g/dl (12.0-16.0); Mean Corpuscular HGB Conc 32 g/dl (31-36); Mean Corpuscular Hemoglobin 26 pg (27-31); Mean Corpuscular Volume 82 fL (80-97); Mean Platelet Volume 7 um3 (7.4-10.4); Red Blood Count 3.99 10^6/ul (4.0-5.4); Red Cell Distribution Width 21 % (10.5-15); White Blood Count 4.9 10^3/ul (3.5-10.8)
[2016-09-20 05:39] LABS: Albumin 2.7 g/dL (3.2-5.2); Direct Bilirubin 0.2 mg/dL (0.03-0.18); Globulin 4.1 g/dL (2-4); Indirect Bilirubin 0.7 mg/dL (0.3-1.0); Total Bilirubin 0.9 mg/dL (0.2-1.0); Total Protein 6.8 g/dL (6.4-8.9)
[2016-09-20] MEDS: Insulin LISPRO* 1 UNITS UNIT SUBCUT SCH ×4 (08:03→21:10)
[2016-09-20] MEDS: Docusate CAP* 100 MG PO SCH ×2 (08:18→21:10)
[2016-09-20] MEDS: DULoxetine DR CAP* 30 MG CAP.DR PO SCH (08:27)
[2016-09-20] MEDS: Diltiazem CD CAP* 240 MG PO SCH ×2 (08:27→21:10)
[2016-09-20] MEDS: Omeprazole CAP* 20 MG PO SCH ×2 (08:27→21:10)
--- NOTE | 2016-09-20 10:19 | PN ---
Subjective Date of Service: 09/20/16 Interval History: Patient seen this morning. Reports she is noticing improvement in her symptoms and feels she is moving back towards her baseline. No chest pain. Ambulated without O2 yesterday without desaturation. Family History: Unchanged from Admission Social History: Unchanged from Admission Past Medical History: Unchanged from Admission Objective Active Medications: Acetaminophen (Tylenol Tab*) 650 mg PO Q6H PRN Diltiazem HCl (Cardizem Cd Cap*) 240 mg PO BID MARIA Docusate Sodium (Colace Cap*) 200 mg PO BID MARIA Duloxetine HCl (Cymbalta Cap*) 60 mg PO DAILY MARIA Insulin Human Lispro (Humalog*) 0 units SUBCUT ACHS MARIA Omeprazole (Prilosec Cap*) 20 mg PO BID MARIA Ondansetron HCl (Zofran Inj*) 4 mg IV Q6H PRN Ropinirole HCl (Requip*) 4 mg PO BEDTIME MARIA Vital Signs 09/19/16 09/19/16 09/19/16 11:03 14:37 16:00 Temperature 98.4 F 98.5 F Pulse Rate 99 95 Respiratory 16 18 Rate Blood Pressure 130/64 116/54 (mmHg) O2 Sat by Pulse 95 96 96 Oximetry 09/19/16 09/19/16 09/19/16 20:00 20:09 23:33 Temperature 98.1 F 97.0 F Pulse Rate 88 89 Respiratory 16 16 16 Rate Blood Pressure 138/70 99/61 (mmHg) O2 Sat by Pulse 98 96 Oximetry 09/20/16 09/20/16 09/20/16 00:00 03:42 07:39 Temperature 98.0 F 98.0 F Pulse Rate 91 79 Respiratory 16 16 Rate Blood Pressure 129/72 144/78 (mmHg) O2 Sat by Pulse 98 98 97 Oximetry 09/20/16 08:33 Temperature Pulse Rate Respiratory 16 Rate Blood Pressure (mmHg) O2 Sat by Pulse Oximetry Oxygen Devices in Use Now: None Appearance: Middle-aged, morbidly obese, F, laying in bed in NAD Eyes: No Scleral Icterus Ears/Nose/Mouth/Throat: Mucous Membranes Moist Neck: NL Appearance and Movements; NL JVP Respiratory: Symmetrical Chest Expansion and Respiratory Effort, Clear to Auscultation Cardiovascular: NL Sounds; No Murmurs; No JVD, RRR Abdominal: - - Obese, soft, NTND, BS+ Lymphatic: No Cervical Adenopathy Extremities: No Edema Skin: No Rash or Ulcers Neurological: Alert and Oriented x 3 Result Diagrams: 09/20/16 05:00 09/18/16 07:03 Microbiology and Other Data: Assess/Plan/Problems-Billing . Assessment: 66 yo female with sob of unclear etiology. With seeming normal heart function and lung anatomy, possibly 2/2 anemia, planning for EGD/C-scope - Patient Problems (1) Anemia Current Visit: Yes Comment: H&H stable - transfused 2 units 09/16/16 - EGD/colonoscopy planned for 09/20. Pantoprazole drip until noon 09/19, then BID omeprazole started Fe/TIBC, ferritin 09/20, not entirely c/w JOSE RAFAEL CEA negative, CA19-9 pending (2) Shortness of breath on exertion Current Visit: Yes Comment: ETELVINA shows relatively normal LV Appreciate Dr. Garcia's consult on 09/19. Etiology of HECK a combination of anemia and MO. Should get outpatient sleep study (3) Atrial fibrillation Current Visit: Yes Comment: Continue diltiazem Rivaroxaban on hold. rate controlled (4) History of pulmonary embolism Current Visit: Yes Comment: Rivaroxaban on hold. (5) Morbid obesity Current Visit: Yes Comment: BMI 49.3. (6) HTN (hypertension) Current Visit: Yes Comment: - continue diltiazem (7) DVT prophylaxis Current Visit: Yes Comment: SCDs
[2016-09-20] MEDS ORDERED: Ondansetron INJ* 2 MG/ML VIAL IV PRN (13:57)
[2016-09-20] MEDS ORDERED: Dexamethasone IV* 4 MG/ML 1 ML (4 MG) IV SLOW PU ONE (14:00)
[2016-09-20] MEDS ORDERED: fentaNYL* 50 MCG/ML 2 ML VIAL (100 MCG VIAL) ONE ×2 (14:03→14:28)
[2016-09-20] MEDS ORDERED: Midazolam* 1 MG/ML 5 ML VIAL (5 MG) ONE (14:03)
[2016-09-20] MEDS ORDERED: Dexamethasone IV* 4 MG/ML 1 ML (4 MG) ONE (14:03)
[2016-09-20] MEDS ORDERED: Lidocaine 2% PF * 5 ML VIAL ONE (14:04)
[2016-09-20] MEDS ORDERED: Propofol* 10 MG/ML 20 ML BTL IV PUSH ONE (14:04)
[2016-09-20] MEDS ORDERED: Ondansetron INJ* 2 MG/ML VIAL ONE (14:04)
[2016-09-20] MEDS: rOPINIRole TAB* 4 MG PO SCH (21:10)
--- NOTE | 2016-09-21 07:08 | PRO ---
DATE: 09/20/16 REFERRING PHYSICIAN: Hussein Centeno MD. PROCEDURE: Upper gastrointestinal endoscopy through efferent limb of gastric bypass; colonoscopy and ileoscopy x 25 cm. INDICATION: This 66-year-old woman, presenting to the ER with SOB and being worked up for a number of issues, had her hemoglobin fall by 4 grams and stool was heme positive. She, additionally, had adenopathy seen in the abdomen on a non-contrast CT scan done on 09/14/16. She initially presented the day before admission also short of breath and a CTA on 09/12/16 negative for pulmonary embolism. In the course of other workup, her hemoglobin fell steadily day by day 1/2 to 1 gr. She was empirically given a Protonix drip and then twice a day IV PPI. She was transfused two units. The blood count came up with the transfusions and has continued up there was no overt bleeding. Given her obesity, an anesthesia- assisted exam was requested. Labs have shown an improvement in alkaline phosphatase. It is probably an independent issue related to doxycycline or another outpatient med. She has been feeling better. ENDOSCOPIST: Dr. Kuo MEDICATIONS: Anesthesia per Dr. Coffey given her morbid obesity and anticipated need for airway backup. FINDINGS: She is a morbidly-obese woman in no overt distress at this time. She was positioned at 45 degrees left lateral decubitus. EGD: Larynx - Symmetric limited views. Esophagus - easily entered, and the mucosa is normal in the upper, mid, and lower esophagus with the EG junction at 38, snug, and without scarring, erosion or overt abnormality. No blood was seen. Gastric pouch - of average size with no abnormality. Gastroenteric anastomosis - wide open. Blind limb - very short, without abnormality. Efferent limb - run for about 50 cm, and no mucosal break seen or polyps or blood. There was a scatter shot miniscule punctate one-tenth to two-tenths mm red spots, again without any bleeding or clot seen. They were not well formed AVMs, and their nature and significance is unclear. They did not appear amenable to biopsy. Withdrawing back through the anastomotic area, no erosive abnormality was seen. The patient was calm and views were good. COLONOSCOPY: Initial views show a [id number]-ih-dyja prep though the stool was mostly liquid; and, with insufflation and limited suction, passage was safely accomplished through the sigmoid, descending, transverse, and right colon. Views were adequate to exclude any large or substantial lesion that might have bled or be related to metastatic disease explaining the pancreatic area abnormality on the noncontrast CT. The cecum, ileocecal valve, and 15 cm of terminal ileum were normal. On slow withdrawal, a few scattered diverticula were seen, but no areas of scarring. Final views in the rectum including retroflexion were normal. IMPRESSION: 1. Normal anatomy status post gastrojejunal bypass. 2. Punctate vascular prominence in the jejunum of uncertain significance - would avoid Xarelto and, if an anticoagulant is needed, warfarin with conservative targeting of INR would likely be lower the risk. 3. History of pulmonary embolism - no evidence for this recently, and CTA was negative on 09/12/16. 4. Mild pancolonic diverticulosis. 5. Normal colonoscopy and ileoscopy otherwise. 6. Heme positive stool - source unclear; but, at this point, she can be fed and her Hemoccults tracked off anticoagulation. 7. Rise in alkaline phosphatase - rapidly resolving, presumably something transient or drug related (? a tetracycline) 8. Abnormal adenopathy on non-contrast CT - following her course and potentially repeating a CT in two months would appear reasonable as there is no obvious noninvasive way to get more information. Her altered anatomy would make endoscopic ultrasound less definitive. [id number]/[facility] #: [id number] LULI
[2016-09-21] MEDS: Diltiazem CD CAP* 240 MG PO SCH (08:50)
[2016-09-21] MEDS: Docusate CAP* 100 MG PO SCH (08:51)
[2016-09-21] MEDS: DULoxetine DR CAP* 30 MG CAP.DR PO SCH (08:52)
[2016-09-21] MEDS: Insulin LISPRO* 1 UNITS UNIT SUBCUT SCH ×2 (09:17→13:00)
[2016-09-21] MEDS: Omeprazole CAP* 20 MG PO SCH (10:28)
[2016-09-21 12:05] VITALS: BP 122/69
--- NOTE | 2016-09-21 14:21 | DCNOTE ---
Patient seen this morning. Had ambulated around the unit with no issues, O2 maintained. Feels breathing is about back to baseline. On exam, RRR, s1 and s2 present, no m/g/r, abd obese, soft, NTND, BS+ Will discharge home off of xarelto. She has no evidence of PE on recent CTA. She does have AFib and we will defer to PCP regarding if/when to restart AC for stroke prevention after this GI bleed. Discussed outpatient sleep study and repeat CT scan with patient.
--- NOTE | 2016-09-22 10:01 | DS ---
DISCHARGE SUMMARY: DATE OF ADMISSION: 09/13/2016. DATE OF DISCHARGE: 09/21/2016. PRINCIPAL DISCHARGE DIAGNOSES: 1. Dyspnea on exertion. 2. Acute blood loss anemia secondary to gastrointestinal bleed. 3. Hypoxia. SECONDARY DIAGNOSES: 1. Super morbid obesity. 2. Diabetes. 3. Hypertension. 4. History of deep venous thrombosis x2. 5. Restless leg syndrome. 6. Osteoarthritis. CONSULTANTS DURING HOSPITALIZATION: 1. Dr. Kuo, Gastroenterology. 2. Dr. Garcia, Pulmonology. DISCHARGE MEDICATIONS REGIMEN: 1. Dyazide 37.5/25 one capsule by mouth 3 times daily. 2. Ropinirole 4 mg by mouth daily. 3. Duloxetine 60 mg by mouth by mouth daily. 4. Diltiazem 240 mg by mouth 2 times daily. 5. [place] 5/325 one tablet by mouth every 4 hours as needed for pain. STUDIES DONE DURING HOSPITALIZATION: 1. Chest x-ray. Impression: Low lung volumes. No active ca rdiopulmonary disease. 2. CT abdomen and pelvis without contrast. Impression: Noncontrast imaging was performed due to d epressed GFR, extensive adenopathy along the lesser curvature in the lidia hepatis region. Multiple peripancreatic lymph nodes. Diffuse pancreatic infiltrative change. There is also fluid extending into the pericolic gutters. Large ventral hernia. 3. Transthoracic echocardiogram. Nondiagnostic due to habitus. 4. Transesophageal echocardiogram. Conclusion: The patient was in atrial fibrillation at the time of examination. Left ventricular chamber size is normal. Global left ventricular wall motion contr actility within normal limits with ejection fraction of 55-60%, mildly dilated left atrium. No obvi ous thrombus visualized in the left atrial appendage, although the patient had multiple lobes and so me not well visualized, cannot entirely exclude this. Right ventricular chamber size and systolic f unction are within normal limits. Unable to estimate the right ventricular systolic pressure due to inadequate Doppler signal. No significant valvular abnormalities noted. No significant pericardia l effusion. There is mild plaque visualized in the aortic arch and descending aorta. 5. EGD and colonoscopy. Impression: Normal anatomy status post gastrojejunal bypass. Punctate va scular prominence at the jejunum of uncertain significance. Mild pancolonic diverticulosis. Normal colonoscopy and ileoscopy otherwise. HISTORY OF PRESENT ILLNESS AND HOSPITAL SUMMARY: Please see the History and Physical by Dr. Justin rankin for full details. Briefly, Ms. Coello is a 66- year-old female with a past medical hist ory as above who presented to the hospital with dyspnea on exertion. The patient was initially seen in the emergency department where she underwent a CT of the chest that was negative for PE and was discharged home; however, she returned shortly afterwards as she had no improvement in her symptoms. She was noted to be hypoxic in the emergency department. The patient was recently diagnosed with Lyme disease and was taking doxycycline. Also had a D-dimer checked by her PCP that was elevated an d started empirically on Xarelto. The patient underwent testing here in the hospitalization to try to determine the etiology of her sh ortness of breath. X-ray results were unremarkable and echocardiogram showed normal systolic functi on. Over the course of the hospitalization, the patient's hematocrit and hemoglobin dropped and she had heme positive stools. Her Xarelto was held. She was seen by Gastroenterology and underwent an endoscopy as above, upper and lower, with no clear signs of bleeding. However, she did have some pu nctate areas in the duodenum that Dr. uKo felt could potentially be a source of bleeding while t he patient is on Xarelto. The patient also had an elevated alk phos, which was attributed to the do xycycline. The patient was transfused 2 units of blood, but over the following days had improvement in her dysp luiza on exertion. She was seen by Dr. Garcia of Pulmonology who felt that the patient's symptoms wer e likely due to a combination of anemia, morbid obesity, and possibly obstructive sleep apnea, and f elt that she would benefit from a sleep study as an outpatient. The patient was able to be weaned off of oxygen and was able to maintain her sats while ambulating. As she has no clear evidence of pulmonary embolism at this time and her previous episodes were prov oked, we will hold her Xarelto. As noted above, she did have episodes of atrial fibrillation during the hospitalization; however, in the setting of her recent GI bleed, we will continue to hold antic oagulation and will defer to her primary care physician to decide if and when to restart this. If s he is restarted on anticoagulation, we will recommend Coumadin with a goal INR on the lower site of therapeutic. Also with the patient's adenopathy noted on the CT scan, we will recommend getting a r epeat CAT scan in about 2 months as these areas would be very difficult to reach endoscopically with the biopsy due to the patient's abnormal postsurgical anatomy. TIME SPENT: Total time spent on this discharge - 45 minutes. This is a summary of the hospitalization. Please see the medical record for further details. [id number]/[facility] #: [id number]
== END 2016-09-21 13:25 | disposition home or self-care (01) | DRG 812 ==
LOC: ED 05:29 → MEDTELE 05:52
PROVIDERS: ADMIT Hospitalist; ATTEND Hospitalist
PROC: 30233N1 Transfusion of Nonautologous Red Blood Cells into Peripheral Vein, Percutaneous Approach (ICD-10-PCS; 2016-09-16)
PROC: B24BZZ4 Ultrasonography of Heart with Aorta, Transesophageal (ICD-10-PCS; principal; 2016-09-16 10:00)
PROC: 0DJ08ZZ Inspection of Upper Intestinal Tract, Via Natural or Artificial Opening Endoscopic (ICD-10-PCS; 2016-09-20)
PROC: 0DJD8ZZ Inspection of Lower Intestinal Tract, Via Natural or Artificial Opening Endoscopic (ICD-10-PCS; 2016-09-20)
DX: D62 Acute posthemorrhagic anemia (principal); A69.20 Lyme disease, unspecified; Z68.43 Body mass index [BMI] 50.0-59.9, adult; I48.91 Unspecified atrial fibrillation; E66.01 Morbid (severe) obesity due to excess calories; K92.2 Gastrointestinal hemorrhage, unspecified; I10 Essential (primary) hypertension; G25.81 Restless legs syndrome; E11.9 Type 2 diabetes mellitus without complications; G47.33 Obstructive sleep apnea (adult) (pediatric); M19.90 Unspecified osteoarthritis, unspecified site; R09.02 Hypoxemia; K43.9 Ventral hernia without obstruction or gangrene; T45.515A Adverse effect of anticoagulants, initial encounter; F32.9 Major depressive disorder, single episode, unspecified; E78.5 Hyperlipidemia, unspecified; K57.30 Diverticulosis of large intestine without perforation or abscess without bleeding; R74.8 Abnormal levels of other serum enzymes; R59.9 Enlarged lymph nodes, unspecified; R06.00 Dyspnea, unspecified; R19.5 Other fecal abnormalities; I70.0 Atherosclerosis of aorta; T36.4X5A Adverse effect of tetracyclines, initial encounter; Z86.718 Personal history of other venous thrombosis and embolism; Z86.711 Personal history of pulmonary embolism; Z88.1 Allergy status to other antibiotic agents; Z90.49 Acquired absence of other specified parts of digestive tract; Z82.49 Family history of ischemic heart disease and other diseases of the circulatory system; Z83.2 Family history of diseases of the blood and blood-forming organs and certain disorders involving the immune mechanism; Z90.710 Acquired absence of both cervix and uterus; Z83.3 Family history of diabetes mellitus; Z98.84 Bariatric surgery status
CPT/HCPCS: 36415; 71010; 71020; 71275; 74176; 80048; 80053; 80061; 80076; 82272; 82378; 82728; 82803; 82947; 83036; 83540; 83550; 83605; 83615; 83735; 83880; 84100; 84443; 84484; 85025; 85379; 85610; 86301; 86850; 86900; 86901; 86922; 87493; 93005; 93306; 93312; 93325; 94760; 96374; 99282; 99283; A9270-GY; J1100; J2250; J2405; J2704; J3010; P9016; P9040; Q9967

== ENCOUNTER 2019-10-26 13:26 | Emergency (ER) | payer MEDICARE, BC ==
--- NOTE | 2019-10-26 13:43 | ED ---
HPI Febrile Illness - HPI Summary HPI Summary: This patient is a 69 year old female presenting to [facility] with an upper respiratory complaint. Patient states she has been exposed to several people who tested positive for flu. She recently heard about a confirmed COVID[place]19 case in the county, and called her PCP when she started feeling symptoms of fever and cough. PCP stated to come here and not to worry about COVID-19 until being tested for influenza. - History of Current Complaint Chief Complaint: EDUpperRespComplaint Time Seen by Provider: 10/26/19 13:29 Hx Obtained From: Patient Onset/Duration: Started Hours Ago Pain Intensity: 0 - Additional Pertinent History Primary Care Physician: KENDY - Allergy/Home Medications Allergies/Adverse Reactions: Allergies Allergy/AdvReac Type Severity Reaction Status Date / Time erythromycin base Allergy Unknown Verified 10/26/19 13:32 Reaction Details Home Medications: Home Medications DULoxetine CAP* [Cymbalta CAP*] 60 mg PO DAILY 04/07/13 [History Confirmed 11/09] Triamterene/HCTZ 37.5-25 MG* [Dyazide CAP*] 2 cap PO DAILY 04/07/13 [History Confirmed 11/09/16] Diltiazem TAB* [Cardizem 60 MG Tab*] 240 mg PO BID 01/01/14 [History Confirmed 11/09/16] rOPINIRole TAB* [Requip*] 4 mg PO DAILY PRN 01/01/14 [History Confirmed 11/09/16 ] PMH/Surg Hx/FS Hx/Imm Hx Endocrine/Hematology History: Reports: Hx Anticoagulant Therapy - Xarelto, Hx Diabetes - TYPE II Denies: Hx Thyroid Disease Cardiovascular History: Reports: Hx Hypertension Denies: Hx Angina, Hx Coronary Artery Disease, Hx Myocardial Infarction Respiratory History: Reports: Hx Pulmonary Embolism Denies: Hx Asthma, Hx Chronic Obstructive Pulmonary Disease (COPD) GI History: Reports: Hx Diverticulosis - temporary colonoscopy Denies: Hx Ulcer History: Denies: Hx Renal Disease Musculoskeletal History: Reports: Hx Arthritis - knees, fingers and ankles Sensory History: Reports: Hx Contacts or Glasses Opthamlomology History: Reports: Hx Contacts or Glasses Psychiatric History: Reports: Hx Depression - Cancer History Hx Chemotherapy: No Hx Radiation Therapy: No - Surgical History Surgery Procedure, Year, and Place: Hysterectomy. Gall Bladder. Perforation in intestine, Repaired. Colostomy, then reversal Infectious Disease History: No Infectious Disease History: Denies: Hx Hepatitis, Hx Human Immunodeficiency Virus (HIV), Traveled Outside the [place] in Last 30 Days - Family History Known Family History: Positive: Cardiac Disease, Hypertension, Diabetes - Social History Alcohol Use: None Substance Use Type: Reports: None Smoking Status (MU): Never Smoked Tobacco Review of Systems Positive: Fever Positive: Cough All Other Systems Reviewed And Are Negative: Yes Physical Exam - Summary Physical Exam Summary: Constitutional: Well-developed, Well-nourished, Alert. (-) Distressed Skin: Warm, Dry HENT: Normocephalic; Atraumatic Eyes: Conjunctiva normal Neck: Musculoskeletal ROM normal neck. (-) JVD, (-) Stridor, (-) Tracheal deviation Cardio: Rhythm regular, rate normal, Heart sounds normal; Intact distal pulses; The pedal pulses are 2+ and symmetric. Radial pulses are 2+ and symmetric. (-) Murmur Pulmonary/Chest wall: Effort normal. (-) Respiratory distress, (-) Wheezes, (-) Rales Abd: Soft, (-) tenderness, (-) Distension, (-) Guarding, (-) Rebound Musculoskeletal: (-) Edema Lymph: (-) Cervical adenopathy Neuro: Alert, Oriented x3 Psych: Mood and affect Normal Triage Information Reviewed: Yes Vital Signs On Initial Exam: Initial Vitals Temp Pulse Resp BP Pulse Ox 98.5 F 80 19 178/111 98 10/26/19 13:27 10/26/19 13:27 10/26/19 13:27 10/26/19 13:27 10/26/19 13:27 Vital Signs Reviewed: Yes Procedures - Sedation Patient Received Moderate/Deep Sedation with Procedure: No Diagnostics - Vital Signs Vital Signs Temp Pulse Resp BP Pulse Ox 10/26/19 13:27 98.5 F 80 19 178/111 98 - Laboratory Lab Statement: Any lab studies that have been ordered have been reviewed, and results considered in the medical decision making process. - Radiology CXR Radiology Interpretation Completed By: Radiologist Summary of Radiographic Findings: No radiographic evidence of acute cardiopulmonary abnormality on this portable chest x-ray. ED Provider has reviewed this report. Course/Dx - Course Course Of Treatment: Patient is here 5 days after having a fever. Patient continues to have a mild cough. Patient is improving and not in any distress. Patient had a negative rapid influenza and chest x-ray. However, given patient' s symptoms the idea of Covid 19 was entertained. Patient does not meet current CDC recommendations but was encouraged to self quarantine at home - Diagnoses Provider Diagnoses: Cough, Fever Discharge ED - Sign-Out/Discharge Documenting (check all that apply): Patient Departure - Discharge - Discharge Plan Condition: Stable Disposition: HOME Referrals: Hussein Centeno MD [Primary Care Provider] - Additional Instructions: Quarantine yourself for 14 days. - Billing Disposition and Condition Condition: STABLE Disposition: Home - Attestation Statements Document Initiated by Helio: Yes Documenting Scribe: Maikel Lyons Provider For Whom Helio is Documenting (Include Credential): Martir Lockwood MD Scribe Attestation: Maikel Quiroga scribed for Martir Lockwood MD on 10/26/19 at 1800. Scribe Documentation Reviewed: Yes Provider Attestation: The documentation as recorded by the Maikel fernandez accurately reflects the service I personally performed and the decisions made by Martir chakraborty MD Status of Scribe Document: Viewed
[2019-10-26 14:09] LABS: Influenza A Molecular Negative (Negative); Influenza B Molecular Negative (Negative)
[2019-10-26 17:09] VITALS: BP 114/69
== END 2019-10-26 17:08 | disposition home or self-care (01) ==
LOC: ED 13:26
DX: R50.9 Fever, unspecified (principal); R05 Cough; Z79.01 Long term (current) use of anticoagulants; E11.9 Type 2 diabetes mellitus without complications; I10 Essential (primary) hypertension; Z86.711 Personal history of pulmonary embolism; F32.9 Major depressive disorder, single episode, unspecified
CPT/HCPCS: 71045; 99283

== ENCOUNTER 2021-04-05 06:40 | Observation (INO) ==
[~2021-04-05 06:40] MED LIST: Buffered Lidocaine 1% SYRIN 1 ml INTRADERM ONE; Lactated Ringers 1000 ml BAG 1,000 ML IV SCH
[2021-04-05] MEDS ORDERED: Propofol 10 MG/ML 20 ML BTL ONE (06:53)
[2021-04-05] MEDS ORDERED: Ondansetron 4 mg VIAL 2 MG/ML 2 ml VIAL ONE (06:53)
[2021-04-05] MEDS ORDERED: Dexamethasone IV 4 MG/ML VIAL 1 ml VIAL ONE (06:53)
[2021-04-05] MEDS ORDERED: Lidocaine 2% PF 5 ML VIAL ONE (06:53)
[2021-04-05] MEDS ORDERED: ceFAZolin 2 GM in NS PREMIX 2 GM/100 ML BAG IVPB ONE (06:57)
[2021-04-05] MEDS ORDERED: ceFAZolin 1 GM ADVAN 1 GM ADDV.VIAL IVPB ONE (06:57)
[2021-04-05] MEDS ORDERED: Bupivacaine 0.5% 50 ML MDV VIAL ONE (07:31)
[2021-04-05] MEDS ORDERED: Vancomycin 1,000 MG VIAL ONE (07:31)
[2021-04-05] MEDS ORDERED: Propofol 10 mg/ml 100 ML BTL 0 ML ONE (07:35)
[2021-04-05] MEDS ORDERED: Midazolam 2 mg/2 ml VIAL 1 mg/ml 2 ml VIAL (2 mg) ONE (08:19)
[2021-04-05] MEDS ORDERED: fentaNYL 100 mcg/2 ml 50 MCG/ML VIAL ONE (08:19)
[2021-04-05] MEDS ORDERED: ROPIVACAINE 5 MG/ML 30 ML BTL (0.5%) ONE (08:44)
[2021-04-05] MEDS ORDERED: Rocuronium 50 mg VIAL 10 mg/ml 5 ml VIAL (50 mg) ONE ×2 (08:46→09:42)
[2021-04-05 08:51] LABS: INR 1.03 (0.86-1.15)
[2021-04-05] MEDS ORDERED: Glycopyrrolate IV 0.2 MG/ML 1 ML VIAL ONE ×2 (09:27→09:48)
[2021-04-05] MEDS ORDERED: Phenylephrine 40 mcg/mL 10mL (400mcg) SYRINGE ONE (09:27)
[2021-04-05] MEDS ORDERED: Morphine 10 MG/ML VIAL (1 ml) ONE (09:35)
[2021-04-05] MEDS ORDERED: Naloxone 0.4 mg VIAL 0.4 mg/ml 1 ml VIAL IV PRN (10:15)
[2021-04-05] MEDS ORDERED: HYDROmorphone 1 MG/1 ML SYRINGE IV PRN (10:15)
[2021-04-05] MEDS ORDERED: Prochlorperazine 5 mg/ml 2 ml VIAL (10 mg) IV PRN (10:15)
[2021-04-05] MEDS ORDERED: diPHENhydraMINE IV 50 MG/ML 1 ml VIAL (BENADRYL) IV PRN ×2 (10:15→12:02)
[2021-04-05] MEDS ORDERED: Ondansetron ODT 4 mg TAB 4 MG TAB PO PRN (12:02)
[2021-04-05] MEDS ORDERED: Morphine 2 MG/ML SYRINGE IV PRN (12:02)
[2021-04-05] MEDS ORDERED: Magnesium Hydroxide LIQ 30 ML UDC PO PRN (12:02)
[2021-04-05] MEDS ORDERED: diPHENhydraMINE 25 mg TAB PO PRN (12:02)
[2021-04-05] MEDS ORDERED: Lactulose 30 ml UDC PO PRN (12:02)
[2021-04-05] MEDS ORDERED: Ondansetron 4 mg VIAL 2 MG/ML 2 ml VIAL IV PRN (12:02)
[2021-04-05] MEDS: Lactated Ringers 1000 ml BAG 1,000 ML IV SCH (13:50)
[2021-04-05] MEDS: ceFAZolin 1 GM ADVAN 1 GM in NS 0.9% 50 ML 50 ML IVPB SCH (17:52)
[2021-04-05] MEDS: Magnesium Hydroxide LIQ 30 ML UDC PO SCH (20:20)
[2021-04-06] MEDS: Lactated Ringers 1000 ml BAG 1,000 ML IV SCH (01:39)
[2021-04-06] MEDS: ceFAZolin 1 GM ADVAN 1 GM in NS 0.9% 50 ML 50 ML IVPB SCH ×2 (01:39→08:09)
[2021-04-06 07:36] LABS: Hematocrit 34 % (35-47); Hemoglobin 11.2 g/dL (12.0-16.0); Mean Platelet Volume 8.2 fL (7.4-10.4); Platelet Count 270 10^3/uL (150-450)
[2021-04-06 07:39] LABS: INR 1.17 (0.86-1.15)
[2021-04-06 07:42] LABS: Calcium 8.4 mg/dL (8.6-10.3); EGFR African American 75.7 (>60); EGFR Non-African American 62.5 (>60)
[2021-04-06] MEDS: Magnesium Hydroxide LIQ 30 ML UDC PO SCH ×3 (08:09→21:01)
[2021-04-06] MEDS: DULoxetine DR 60 mg CAP PO SCH (08:09)
[2021-04-06] MEDS: Vitamin THERAPEUTIC TAB PO SCH (08:09)
[2021-04-06] MEDS ORDERED: Dulaglutide (NF) 0.75 MG/0.5 ML SYRINGE SUBCUT SCH (09:00)
[2021-04-06] MEDS: Enoxaparin 40 MG/0.4 ML SYR SUBCUT SCH (12:56)
[2021-04-06] MEDS ORDERED: PTO: Dulaglutide (NF) 0.75 MG/0.5 ML SYRINGE SUBCUT SCH (17:00)
[2021-04-06] MEDS ORDERED: Warfarin DAILY REMINDER **NOTE FOLLOW UP SCH (17:00)
[2021-04-07 07:11] LABS: Hematocrit 33 % (35-47); Hemoglobin 10.9 g/dL (12.0-16.0); Mean Platelet Volume 7.8 fL (7.4-10.4); Platelet Count 253 10^3/uL (150-450)
[2021-04-07 07:18] LABS: INR 1.23 (0.86-1.15)
[2021-04-07] MEDS: Magnesium Hydroxide LIQ 30 ML UDC PO SCH (09:43)
[2021-04-07] MEDS: DULoxetine DR 60 mg CAP PO SCH (09:49)
[2021-04-07] MEDS: Vitamin THERAPEUTIC TAB PO SCH (09:50)
[2021-04-07] MEDS: Enoxaparin 40 MG/0.4 ML SYR SUBCUT SCH (11:36)
[2021-04-07 11:48] VITALS: BP 136/47
== END 2021-04-07 13:45 | disposition home or self-care (01) ==
LOC: SSU 06:40 → OR 06:40
PROVIDERS: ADMIT Orthopaedic Surgery; ATTEND Orthopaedic Surgery